=== PATIENT | female | born 1945 | race Caucasian/White ===

== ENCOUNTER 2016-05-31 15:40 | Emergency (ER) | payer OTHER ==
[~2016-05-31] VITALS: Ht 165.1 cm; Wt 88.0 kg
[2016-05-31 17:19] VITALS: BP 163/96
[2016-05-31] MEDS ORDERED: NAPR500T3 PO (18:16)
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
== END 2016-05-31 18:25 | disposition home or self-care (01) ==
LOC: ER 15:40
DX: S50.11XA Contusion of right forearm, initial encounter (principal); Z88.7 Allergy status to serum and vaccine; W22.8XXA Striking against or struck by other objects, initial encounter; Y93.89 Activity, other specified; Y92.89 Other specified places as the place of occurrence of the external cause; Y99.8 Other external cause status
CPT/HCPCS: 99282

== ENCOUNTER 2021-03-15 10:16 | Inpatient (IN) | payer MEDICARE, OTHER ==
[~2021-03-15] VITALS: Ht 162.6 cm; Wt 74.5 kg
[~2021-03-15 10:16] MED LIST: NAPR-514 PO
--- NOTE | 2021-03-15 10:58 | PHYS DOC ---
Past Medical History Past Medical History: No Pertinent History Past Surgical History: No Surgical History Smoking Status: Never Smoker Alcohol Use: None Drug Use: None General Adult EDM: Chief Complaint: SHORTNESS OF BREATH HPI: HPI: 76-year-old female past medical history of TIA and former tobacco use x30 years, presents to the ED with complaints of generalized weakness, shortness of breath, headache, sore throat and fatigue stating "I feel like crap." Has not been vaccinated for covid. No formal diagnosis of copd. Is tolerating food/drink. Review of Systems: Review of Systems: Constitutional: Denies fever or chills. [] Eyes: Denies change in visual acuity. [] HENT: Denies nasal congestion or rhinorrhea Respiratory: Denies cough or hemoptysis Cardiovascular: Denies chest pain or edema. [] GI: Denies abdominal pain, nausea, vomiting, bloody stools or diarrhea. [] : Denies dysuria or hematuria Musculoskeletal: Denies back pain or joint pain. [] Integument: Denies rash or diaphoresis Neurologic: Denies focal weakness or sensory changes. [] Endocrine: Denies polyuria or polydipsia. [] Lymphatic: Denies swollen glands. [] Psychiatric: Denies depression or anxiety. [] Heart Score: C/O Chest Pain: No Risk Factors: Risk Factors: DM, Current or recent (<one month) smoker, HTN, HLP, family history of CAD, obesity. Risk Scores: Score 0 - 3: 2.5% MACE over next 6 weeks - Discharge Home Score 4 - 6: 20.3% MACE over next 6 weeks - Admit for Clinical Observation Score 7 - 10: 72.7% MACE over next 6 weeks - Early Invasive Strategies Allergies: Allergies: Allergies Coded Allergies Type Severity Reaction Last Updated Verified Tetanus Vaccines and Toxoid Adverse Reaction Intermediate CAUSES COLD SYMPTOMS 03/15/21 Yes Physical Exam: PE: Constitutional: Well developed, well nourished, no acute distress, non-toxic appearance, afebrile HENT: Normocephalic, atraumatic, moist mucous membranes Eyes: EOMI, conjunctiva normal, no discharge. Neck: Normal range of motion, supple, Cardiovascular: S1/2 present, regular rhythm Lungs & Thorax: Speaking in full sentences, bilateral equal chest rise, no tachypnea or increased work of breathing, 83% RA, requires 5L NC Abdomen: soft, no tenderness, Skin: Warm, dry, no erythema, no rash. [] Extremities: No tenderness, no cyanosis, no lower extremity edema Neurologic: Alert and oriented X 3, normal motor function, normal sensory function, no focal deficits noted. [] Psychologic: Affect normal, judgement normal, mood normal. [] Current Patient Data: Vital Signs: Vital Signs Date Time Temp Pulse Resp B/P (MAP) Pulse Ox O2 Delivery O2 Flow Rate FiO2 03/15/21 10:34 94 Nasal Cannula 5.0 03/15/21 10:32 98.3 77 22 136/62 (86) 98.3 EKG: EKG: Sinus rhythm 80 bpm, no axis deviation, normal intervals, no obvious T wave inversion (motion artifact), no ST elevation or ST depression, no active chest pain Radiology/Procedures: Radiology/Procedures: IMAGING REPORT Signed PATIENT: BARBARA MURPHY EACCOUNT: [id number] : 1945 LOCATION: ER AGE: 76 SEX: F EXAM STATUS: REG ER ORD. PHYSICIAN: JARRED AYALA DO REASON: soa blood work 10:40 PROCEDURE: PORTABLE CHEST 1V EXAM: Chest, single view. HISTORY: Shortness of air. COMPARISON: None. FINDINGS: A frontal view of the chest is obtained. There is diffuse increased interstitial opacity likely due to interstitial infiltrate superimposed on chronic interstitial changes. There is no pleural effusion or pneumothorax. The heart is normal in size for portable technique. There are multiple healed rib fractures. IMPRESSION: Suspected diffuse interstitial infiltrate superimposed on chronic interstitial changes. Electronically signed by: Indu Flores MD (03/15/2021 11:03 AM) [id number] DICTATED and SIGNED BY: INDU FLORES MD DATE: 03/15/21 [id number] 0 Course & Med Decision Making: Course & Med Decision Making Pertinent Labs and Imaging studies reviewed. (See chart for details) COVID-19 CRITERIA: The patient was evaluated during the global COVID-19 pandemic, and that diagnosis was suspected/considered upon their initial presentation. Their evaluation, treatment and testing was consistent with current guidelines for patients who present with complaints or symptoms that may be related to COVID-19. Concern for COVID-19 infection, hypoxia, requiring nasal cannula. Will admit for further medical management. Patient stable time of admission and agrees with this plan. I have spoken with the patient and/or caregivers. I have explained the patient's condition, diagnosis and treatment plan based on the information available to me at this time. I have answered the patient's and/or caregivers questions and answered any concerns. The patient and/or caregivers have as good an understanding of the patient's diagnosis, condition and treatment plan as can be expected at this point. The patient has been stabilized within the capability of the emergency department. The patient will be transported for further care and management or will be moved to an observation or inpatient service. I have communicated with the staff or medical practitioner taking over this patient's care. Dheeraj Disclaimer: Dheeraj Disclaimer: This electronic medical record was generated, in whole or in part, using a voice recognition dictation system. Departure Departure Impression: Primary Impression: Hypoxic Additional Impression: COVID-19 Disposition: ADMITTED INPATIENT Admitting Physician: JUSTIN (Dr. Boyer) Condition: STABLE Referrals: NO PCP (PCP) JARRED AYALA DO Mar 15, 2021 10:58
[2021-03-15 11:00] LABS: BASO % 0 % (0-3); EOS % 0 % (0-3); HEMATOCRIT 37.5 % (36.0-47.0); HEMOGLOBIN 12.6 g/dL (12.0-15.5); LYMPH # 0.5 x10^3/uL (1.0-4.8); LYMPH % 8 % (24-48); MEAN CORPUSCULAR HEMOGLOBIN 30 pg (25-35); MEAN CORPUSCULAR HGB CONC 34 g/dL (31-37); MEAN CORPUSCULAR VOLUME 89 fL (79-100); MONO # 0.3 x10^3/uL (0.0-1.1); MONO % 5 % (0-9); NEUT # 5.6 x10^3/uL (1.8-7.7); NEUT % 86 % (31-73); PLATELET COUNT 341 x10^3/uL (140-400); RED BLOOD COUNT 4.23 x10^6/uL (3.50-5.40); RED CELL DISTRIBUTION WIDTH 13.8 % (11.5-14.5); WHITE BLOOD COUNT 6.5 x10^3/uL (4.0-11.0)
[2021-03-15] MEDS ORDERED: diphenhydrAMINE 50 MG/ML VIAL IVP ONE (11:00)
[2021-03-15] MEDS ORDERED: IV NORMAL SALINE 1000ML BAG 1,000 ML IV ONE (11:00)
[2021-03-15] MEDS ORDERED: PROCHLORPERAZINE 10 MG/2 ML VIAL. IV ONE (11:00)
[2021-03-15] MEDS ORDERED: DEXAMETHASONE SOD PHOS 20 MG/5 ML VIAL. IV ONE (11:00)
--- NOTE | 2021-03-15 11:05 | RAD ---
EXAM: Chest, single view. HISTORY: Shortness of air. COMPARISON: None. FINDINGS: A frontal view of the chest is obtained. There is diffuse increased interstitial opacity li radha due to interstitial infiltrate superimposed on chronic interstitial changes. There is no pleural effusion or pneumothorax. The heart is normal in size for portable technique. There are multiple hea led rib fractures. IMPRESSION: Suspected diffuse interstitial infiltrate superimposed on chronic interstitial changes. Electronically signed by: Indu Becker MD (03/15/2021 11:03 AM) [id number]
[2021-03-15 11:06] LABS: CALCIUM 8.5 mg/dL (8.5-10.1); CREATININE 0.8 mg/dL (0.6-1.0); GFR 69.9; POTASSIUM 3.3 mmol/L (3.5-5.1)
[2021-03-15 11:14] LABS: ALBUMIN 2.5 g/dL (3.4-5.0); ALBUMIN/GLOBULIN RATIO 0.6 (1.0-1.7); TOTAL BILIRUBIN 0.5 mg/dL (0.2-1.0); TOTAL PROTEIN 6.9 g/dL (6.4-8.2)
[2021-03-15 11:45] LABS: PCO2 ABG 33 mmHg (35-46)
[2021-03-15 11:46] LABS: BASE EXCESS ABG 3 mmol/L (-3-3); FIO2 ABG 21; HCO3 ABG 25 mmol/L (21-28); PO2 ABG 46 mmHg (65-108); SAT O2 ABG 86 % (92-99)
[2021-03-15 12:07] LABS: INFLUENZA A PATIENT NEGATIVE (NEGATIVE); INFLUENZA B PATIENT NEGATIVE (NEGATIVE)
--- NOTE | 2021-03-15 12:13 | PDOC1 ---
History and Physical Date of Admission Date of Admission DATE: 03/15/21 TIME: 12:12 Identification/Chief Complaint Chief Complaint SOB, sore throat Source Source: Patient History of Present Illness History of Present Illness Ms Medina is a 76yo female with PMHx TIA, seasonal allergies who presents to ED via private vehicle on 03/15/2021 c/o worsening SOB, sore throat, and fatigue for the past 3 days prior to admission. Over the past 48 hours prior to arrival she has been laying in bed and has not cooked for herself or eaten anything. She started developed diarrhea over the last day prior to arrival and almost had fecal accident in her bed. She told her grandson who lives with her that she was getting worse and needed to go to the hospital. She does note that over the past 4 days the food that she had cooked and tried to eat had tasted more salty and was losing its flavor. Denies fever, reports chills. 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 She helps transport her great granddaughter to school on a regular basis and on Tuesday03/06/2021 had to bring her great- granddaughter home early due to febrile illness took her great granddaughter to [facility] to be tested for COVID-19 and that test returned positive, and no one else in the family was tested. Patient thought she did not spend much time with her great-granddaughter, but did not wear a mask with her. Patient thinks this was her initial exposure. Patient is not vaccinated against COVID 19. Vital signs in ED pulse 77 beats a minute respirations 22/min O2 saturations 83% on room air blood pressure 136/62. Temp 98.3 F Chest radiograph with interstitial infiltrates likely acute on chronic. EKG appears sinus rhythm rate of 80 bpm normal axes and intervals, QTC [address] segment elevations no T wave inversions. Labs WBC 6.5 Hb 12.6, platelets 341, NA 138, K3.3, BUN 15, CR 0.8, glucose 96, calcium 8.5, bilirubin 0.5, AST 39, ALT 25, alk phos 53, CK 79, albumin 2.5, high-sensitivity troponin XI, rapid influenza negative, rapid COVID-19 positive, rapid group A strep negative ABG on room air 7.5 She was placed on 5 L/min nasal cannula of oxygen and O2 saturations are 92%. Admitted for further care. Past Medical History CENTRAL NERVOUS SYSTEM: TIA (2015) Past Surgical History Past Surgical History: No pertinent history Family History Family History: Coronary Artery Disease, Diabetes, High Cholestrol, Hypertension Social History Smoke: Quit (2002) ALCOHOL: none Drugs: None Current Problem List Problem List Problems Medical Problems: (1) COVID-19 Status: Acute (2) Hypoxic Status: Acute (3) Person under investigation for COVID-19 Status: Acute Current Medications Current Medications Current Medications Dexamethasone Sodium Phosphate (Decadron) 10 mg 1X ONCE IV Last administered on 03/15/21at 11:29; Start 03/15/21 at 11:00; Stop 03/15/21 at 11:01; Status DC Prochlorperazine Edisylate (Compazine) 10 mg 1X ONCE IV Last administered on 03/15/21at 11:29; Start 03/15/21 at 11:00; Stop 03/15/21 at 11:01; Status DC Diphenhydramine HCl (Benadryl) 25 mg 1X ONCE IVP Last administered on 03/15/21at 11:28; Start 03/15/21 at 11:00; Stop 03/15/21 at 11:01; Status DC Sodium Chloride 1,000 ml @ 1,000 mls/hr 1X ONCE IV Last administered on 03/15/21at 11:00; Start 03/15/21 at 11:00; Stop 03/15/21 at 11:59; Status DC Active Scripts Active Naproxen 500 Mg Tablet 1 Tab PO BID PRN Allergies Allergies: Coded Allergies: Tetanus Vaccines and Toxoid (Verified Adverse Reaction, Intermediate, CAUSES COLD SYMPTOMS, 03/15/21) ROS General: YES: Chills, Fatigue, Malaise, Appetite; No: Night Sweats, Other PSYCHOLOGICAL ROS: No: Anxiety, Behavioral Disorder, Concentration difficultie, Decreased libido, Depression, Disorientation, Hallucinations, Hostility, Irritablity, Memory difficulties, Mood Swings, Obsessive thoughts, Physical abuse, Sexual abuse, Sleep disturbances, Suicidal ideation, Other Eyes: Yes Uses glasses; No Blurry vision, No Decreased vision, No Double vision, No Dry eyes, No Excessive tearing, No Eye Pain, No Itchy Eyes, No Loss of vision, No Photophobia, No Scotomata, No Uses contacts, No Other HEENT: YES: Nasal congestion, Nasal discharge, Sore Throat; No: Heacaches, Visual Changes, Hearing change, Oral lesions, Sinus pain, Epistaxis, Sneezing, Snoring, Tinnitus, Vertigo, Vocal changes, Other ALLERGY AND IMMUNOLOGY: No: Hives, Insect Bite Sensitivity, Itchy/Watery Eyes, Nasal Congestion, Post Nasal Drip, Seasonal Allergies, Other Hematological and Lymphatic: No: Bleeding Problems, Blood Clots, Blood Transfusions, Brusing, Night Sweats, Pallor, Swollen Lymph Nodes, Other ENDOCRINE: No: Breast Changes, Galactorrhea, Hair Pattern Changes, Hot Flashes, Malaise/lethargy, Mood Swings, Palpitations, Polydipsia/polyuria, Skin Changes, Temperature Intolerance, Unexpected Weight Changes, Other Breast: No New/Changing Breast Lumps, No Nipple changes, No Nipple discharge, No Other Respiratory: YES: Cough, Shortness of breath, SOB with excertion; No: Hemoptysis, Orthopnea, Pleuritic Pain, Sputum Changes, Stridor, Tachypnea, Wheezing, Other Cardiovascular: No Chest Pain, No Palpitations, No Orthopnea, No Paroxysmal Noc. Dyspnea, No Edema, No Lt Headedness, No Other Gastrointestinal: Yes Nausea, Yes Diarrhea; No Vomiting, No Abdominal Pain, No Constipation, No Melena, No Hematochezia, No Other Genitourinary: No Dysuria, No Frequency, No Incontinence, No Hematuria, No Retention, No Discharge, No Urgency, No Pain, No Flank Pain, No Other, No , No , No , No , No , No , No Musculoskeletal: No Gait Disturbance, No Joint Pain, No Joint Stiffness, No Joint Swelling, No Muscle Pain, No Muscular Weakness, No Pain In:, No Swelling In:, No Other Neurological: No Behavorial Changes, No Bowel/Bladder ControlChng, No Confusion, No Dizziness, No Gait Disturbance, No Headaches, No Impaired Coord/balance, No Memory Loss, No Numbness/Tingling, No Seizures, No Speech Problems, No Tremors, No Visual Changes, No Weakness, No Other Skin: No Dry Skin, No Eczema, No Hair Changes, No Lumps, No Mole Changes, No Mottling, No Nail Changes, No Pruritus, No Rash, No Skin Lesion Changes, No Other, No Acne Physical Exam General: Alert, Oriented X3, Cooperative, moderate distress HEENT: Atraumatic, PERRLA, EOMI, Mucous membr. moist/pink Lungs: Other (scattered wheezes) Heart: S1S2, RRR, no thrills, no rubs, no gallops, no murmurs Abdomen: Normal bowel sounds, Soft, No tenderness, No hepatosplenomegaly, No masses Rectal Exam: not examined Extremities: No clubbing, No cyanosis, No edema, Normal pulses, No tenderness/swelling Skin: No rashes, No breakdown, No significant lesion Neuro: Normal gait, Normal speech, Strength at 5/5 X4 ext, Normal tone, Sensation intact, Cranial nerves 3-12 NL, Reflexes 2+ Psych/Mental Status: Mental status NL, Mood NL Vitals Vitals Vital Signs Date Time Temp Pulse Resp B/P (MAP) Pulse Ox O2 Delivery O2 Flow Rate FiO2 03/15/21 11:34 78 20 144/81 (102) 97 Nasal Cannula 5.0 03/15/21 10:32 98.3 98.3 Labs Labs Laboratory Tests Test 03/15/21 10:42 03/15/21 10:50 03/15/21 11:35 White Blood Count 6.5 x10^3/uL (4.0-11.0) Red Blood Count 4.23 x10^6/uL (3.50-5.40) Hemoglobin 12.6 g/dL (12.0-15.5) Hematocrit 37.5 % (36.0-47.0) Mean Corpuscular Volume 89 fL (79-100) Mean Corpuscular Hemoglobin 30 pg (25-35) Mean Corpuscular Hemoglobin Concent 34 g/dL (31-37) Red Cell Distribution Width 13.8 % (11.5-14.5) Platelet Count 341 x10^3/uL (140-400) Neutrophils (%) (Auto) 86 % (31-73) Lymphocytes (%) (Auto) 8 % (24-48) Monocytes (%) (Auto) 5 % (0-9) Eosinophils (%) (Auto) 0 % (0-3) Basophils (%) (Auto) 0 % (0-3) Neutrophils # (Auto) 5.6 x10^3/uL (1.8-7.7) Lymphocytes # (Auto) 0.5 x10^3/uL (1.0-4.8) Monocytes # (Auto) 0.3 x10^3/uL (0.0-1.1) Eosinophils # (Auto) 0.0 x10^3/uL (0.0-0.7) Basophils # (Auto) 0.0 x10^3/uL (0.0-0.2) Sodium Level 138 mmol/L (136-145) Potassium Level 3.3 mmol/L (3.5-5.1) Chloride Level 102 mmol/L (98-107) Carbon Dioxide Level 24 mmol/L (21-32) Anion Gap 12 (6-14) Blood Urea Nitrogen 15 mg/dL (7-20) Creatinine 0.8 mg/dL (0.6-1.0) Estimated GFR (Cockcroft-Gault) 69.9 BUN/Creatinine Ratio 19 (6-20) Glucose Level 96 mg/dL (70-99) Calcium Level 8.5 mg/dL (8.5-10.1) Total Bilirubin 0.5 mg/dL (0.2-1.0) Aspartate Amino Transf (AST/SGOT) 39 U/L (15-37) Alanine Aminotransferase (ALT/SGPT) 25 U/L (14-59) Alkaline Phosphatase 53 U/L (46-116) Creatine Kinase 79 U/L (26-192) Troponin I High Sensitivity 11 ng/L (4-50) Total Protein 6.9 g/dL (6.4-8.2) Albumin 2.5 g/dL (3.4-5.0) Albumin/Globulin Ratio 0.6 (1.0-1.7) Influenza Type A Antigen Negative (NEGATIVE) Influenza Type B Antigen Negative (NEGATIVE) SARS-CoV-2 Antigen (Rapid) Positive (NEGATIVE) O2 Saturation 86 % (92-99) Arterial Blood pH 7.50 (7.35-7.45) Arterial Blood pCO2 at Patient Temp 33 mmHg (35-46) Arterial Blood pO2 at Patient Temp 46 mmHg (65-108) Arterial Blood HCO3 25 mmol/L (21-28) Arterial Blood Base Excess 3 mmol/L (-3-3) FiO2 21 Laboratory Tests Test 03/15/21:42 03/15/21 10:50 03/15/21 11:35 White Blood Count 6.5 x10^3/uL (4.0-11.0) Red Blood Count 4.23 x10^6/uL (3.50-5.40) Hemoglobin 12.6 g/dL (12.0-15.5) Hematocrit 37.5 % (36.0-47.0) Mean Corpuscular Volume 89 fL (79-100) Mean Corpuscular Hemoglobin 30 pg (25-35) Mean Corpuscular Hemoglobin Concent 34 g/dL (31-37) Red Cell Distribution Width 13.8 % (11.5-14.5) Platelet Count 341 x10^3/uL (140-400) Neutrophils (%) (Auto) 86 % (31-73) Lymphocytes (%) (Auto) 8 % (24-48) Monocytes (%) (Auto) 5 % (0-9) Eosinophils (%) (Auto) 0 % (0-3) Basophils (%) (Auto) 0 % (0-3) Neutrophils # (Auto) 5.6 x10^3/uL (1.8-7.7) Lymphocytes # (Auto) 0.5 x10^3/uL (1.0-4.8) Monocytes # (Auto) 0.3 x10^3/uL (0.0-1.1) Eosinophils # (Auto) 0.0 x10^3/uL (0.0-0.7) Basophils # (Auto) 0.0 x10^3/uL (0.0-0.2) Sodium Level 138 mmol/L (136-145) Potassium Level 3.3 mmol/L (3.5-5.1) Chloride Level 102 mmol/L (98-107) Carbon Dioxide Level 24 mmol/L (21-32) Anion Gap 12 (6-14) Blood Urea Nitrogen 15 mg/dL (7-20) Creatinine 0.8 mg/dL (0.6-1.0) Estimated GFR (Cockcroft-Gault) 69.9 BUN/Creatinine Ratio 19 (6-20) Glucose Level 96 mg/dL (70-99) Calcium Level 8.5 mg/dL (8.5-10.1) Total Bilirubin 0.5 mg/dL (0.2-1.0) Aspartate Amino Transf (AST/SGOT) 39 U/L (15-37) Alanine Aminotransferase (ALT/SGPT) 25 U/L (14-59) Alkaline Phosphatase 53 U/L (46-116) Creatine Kinase 79 U/L (26-192) Troponin I High Sensitivity 11 ng/L (4-50) Total Protein 6.9 g/dL (6.4-8.2) Albumin 2.5 g/dL (3.4-5.0) Albumin/Globulin Ratio 0.6 (1.0-1.7) Influenza Type A Antigen Negative (NEGATIVE) Influenza Type B Antigen Negative (NEGATIVE) SARS-CoV-2 Antigen (Rapid) Positive (NEGATIVE) O2 Saturation 86 % (92-99) Arterial Blood pH 7.50 (7.35-7.45) Arterial Blood pCO2 at Patient Temp 33 mmHg (35-46) Arterial Blood pO2 at Patient Temp 46 mmHg (65-108) Arterial Blood HCO3 25 mmol/L (21-28) Arterial Blood Base Excess 3 mmol/L (-3-3) FiO2 21 Images Images Chest radiograph: A frontal view of the chest is obtained. There is diffuse increased interstitial opacity likely due to interstitial infiltrate superimposed on chronic interstitial changes. There is no pleural effusion or pneumothorax. The heart is normal in size for portable technique. There are multiple healed rib fractures. IMPRESSION: Suspected diffuse interstitial infiltrate superimposed on chronic interstitial changes. VTE Prophylaxis Ordered VTE Prophylaxis Devices: No VTE Pharmacological Prophylaxi: Yes Assessment/Plan Assessment/Plan A/P: Acute respiratory failure with hypoxia -due to COVID-19 with pneumonia. Will wean O2 as tolerated. Decadron daily for 10 days. Remdesivir. Supportive care wean O2 as tolerated COVID 19 - not vaccinated, Decadron, remdesivir, supportive care, O2 therapy. Check CRP, may benefit from Tocilizumab if elevated Severe protein calorie malnutrition - will give 1 dose clinimix, monitor PO intake, regular diet Mild transaminitis - likely due to covid 19. Will monitor, prn loperamide Seasonal allergies - zyrtec, prn albuterol inhaler H/o TIA - prior carotid dopplers with no significant disease. Abnormal CXR - possibly with underlying pulmonary disease, likely this is COVID 19 pneumonia. Monitor FEN - General diet PPX - lovenox CODE - DNR/DNI Dispo - inpatient patient names Promise Brown and Jacinto Brown as her surrogate decision makers Justifications for Admission Other Justification LUIS ANTONIO BROOKS MD Mar 15, 2021 12:13
[2021-03-15] MEDS ORDERED: guaiFENesin DM 200MG/20MG 10 ML SYRUP PO PRN (12:15)
[2021-03-15] MEDS ORDERED: fentaNYL PF VIAL 100 MCG/2 ML VIAL IVP PRN (12:15)
[2021-03-15] MEDS ORDERED: ONDANSETRON PF 4 MG/2 ML VIAL. IVP PRN (12:15)
[2021-03-15] MEDS ORDERED: ACETAMINOPHEN 325 MG TABLET. PO PRN (12:15)
[2021-03-15] MEDS ORDERED: traMADol 50 MG TABLET PO PRN (12:15)
[2021-03-15 14:00] VITALS: BP 140/58
[2021-03-15] MEDS ORDERED: POTASSIUM BICARB 20 MEQ EFFERVESCENT TABLET. PO ONE (14:30)
[2021-03-15] MEDS ORDERED: ALBUTEROL SULFATE 8GM INHALER. INH PRN (14:30)
[2021-03-15] MEDS ORDERED: AA 4.25 %/CALCIUM/LYTES/D5W 1,000 ML IV SCH (15:00)
--- NOTE | 2021-03-15 15:00 | EKG ---
[facility] [address] [place] [address] Test Date: 2021-03-15 Test Time: 10:28:59 Pat Name: BARBARA MURPHY Department: Room: [facility] Gender: F [employer] Equipment Repairer: : 1945 Requested By: JARRED AYALA Order Number: [id number] Reading MD: Aldair Kelly Measurements Intervals [place] Rate: 80 P: 38 OK: 160 QRS: 3 QRSD: 76 T: 18 QT: 382 QTc: 444 Interpretive Statements SINUS RHYTHM NORMAL ECG RI6.02 No previous ECG available for comparison Electronically Signed On 03-15-2021 20:54:15 CDT by Aldair Kelly
[2021-03-15] MEDS ORDERED: SODIUM CHLORIDE 0.65% NASAL SPRAY 45ML BOTTLE. NS PRN (15:15)
[2021-03-15] MEDS ORDERED: LOPERAMIDE 2 MG CAPSULE PO PRN (15:15)
[2021-03-15] MEDS: CETIRIZINE HCL 10 MG TABLET. PO SCH ×2 (16:43→17:07)
[2021-03-15] MEDS: REMDESIVIR LOAD in IV NORMAL SALINE 250ML TV IV ONE ×2 (16:44→17:07)
--- NOTE | 2021-03-15 17:57 | NUR ---
Patient refused her loading dose of Remdesivir, due to her friend on the phone stating she shouldn't take it because it affects the kidneys. Patient would like to talk to the doctor about medication before raking it.
[2021-03-15 19:00] VITALS: BP 106/87
[2021-03-15] MEDS: PSYLLIUM HUSK (SUGAR FREE) 1 PKT PACKET PO SCH (22:29)
[2021-03-15] MEDS: ENOXAPARIN 40 MG/0.4 ML SYRINGE. SQ SCH (22:30)
[2021-03-15 23:41] VITALS: BP 135/86
[2021-03-16 03:16] VITALS: BP 157/60
[2021-03-16 06:35] LABS: BASO % 0 % (0-3); EOS % 0 % (0-3); HEMATOCRIT 38.7 % (36.0-47.0); HEMOGLOBIN 12.7 g/dL (12.0-15.5); LYMPH # 0.5 x10^3/uL (1.0-4.8); LYMPH % 9 % (24-48); MEAN CORPUSCULAR HEMOGLOBIN 29 pg (25-35); MEAN CORPUSCULAR HGB CONC 33 g/dL (31-37); MEAN CORPUSCULAR VOLUME 89 fL (79-100); MONO # 0.3 x10^3/uL (0.0-1.1); MONO % 6 % (0-9); NEUT # 4.5 x10^3/uL (1.8-7.7); NEUT % 85 % (31-73); PLATELET COUNT 365 x10^3/uL (140-400); RED BLOOD COUNT 4.35 x10^6/uL (3.50-5.40); RED CELL DISTRIBUTION WIDTH 14.2 % (11.5-14.5); WHITE BLOOD COUNT 5.3 x10^3/uL (4.0-11.0)
[2021-03-16 07:00] VITALS: BP 178/71
[2021-03-16 07:12] LABS: ALBUMIN 2.3 g/dL (3.4-5.0); ALBUMIN/GLOBULIN RATIO 0.5 (1.0-1.7); C-REACTIVE PROTEIN 103.3 mg/L (0-3.3); CALCIUM 8.5 mg/dL (8.5-10.1); CREATININE 0.8 mg/dL (0.6-1.0); GFR 69.9; POTASSIUM 4.2 mmol/L (3.5-5.1); TOTAL BILIRUBIN 0.3 mg/dL (0.2-1.0); TOTAL PROTEIN 6.7 g/dL (6.4-8.2)
[2021-03-16] MEDS: ZINC SULFATE 220 MG CAPSULE. PO SCH (09:32)
[2021-03-16] MEDS: THIAMINE 100 MG TABLET. PO SCH (09:32)
[2021-03-16] MEDS: ASCORBIC ACID 500 MG TABLET PO SCH (09:32)
[2021-03-16] MEDS: CETIRIZINE HCL 10 MG TABLET. PO SCH (09:32)
[2021-03-16] MEDS: DEXAMETHASONE SOD PHOS 4 MG/ML VIAL IVP SCH (09:33)
--- NOTE | 2021-03-16 10:51 | PDOC ---
[employer] PROGRESS NOTE Date of Service DOS: DATE: 03/16/21 TIME: 10:47 Chief Complaint Chief Complaint SOB sore throat COVID-19 Hypoxic History of Present Illness History of Present Illness 03/16 Patient seen and examined bedside. Patient pleasant and conversational. Discussed case with RN and social work coordinator. Ms Medina is a 76yo female with PMHx TIA, seasonal allergies who presents to ED via private vehicle on 03/15/2021 c/o worsening SOB, sore throat, and fatigue for the past 3 days prior to admission. Over the past 48 hours prior to arrival she has been laying in bed and has not cooked for herself or eaten anything. She started developed diarrhea over the last day prior to arrival and almost had fecal accident in her bed. She told her grandson who lives with her that she was getting worse and needed to go to the hospital. She does note that over the past 4 days the food that she had cooked and tried to eat had tasted more salty and was losing its flavor. Denies fever, reports chills. 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 She helps transport her great granddaughter to school on a regular basis and on Tuesday03/06/2021 had to bring her great- granddaughter home early due to febrile illness took her great granddaughter to [facility] to be tested for COVID-19 and that test returned positive, and no one else in the family was tested. Patient thought she did not spend much time with her great-granddaughter, but did not wear a mask with her. Patient thinks this was her initial exposure. Patient is not vaccinated against COVID 19. Vital signs in ED pulse 77 beats a minute respirations 22/min O2 saturations 83% on room air blood pressure 136/62. Temp 98.3 F Chest radiograph with interstitial infiltrates likely acute on chronic. EKG appears sinus rhythm rate of 80 bpm normal axes and intervals, QTC [address] segment elevations no T wave inversions. Labs WBC 6.5 Hb 12.6, platelets 341, NA 138, K3.3, BUN 15, CR 0.8, glucose 96, calcium 8.5, bilirubin 0.5, AST 39, ALT 25, alk phos 53, CK 79, albumin 2.5, high-sensitivity troponin XI, rapid influenza negative, rapid COVID-19 positive, rapid group A strep negative ABG on room air 7. She was placed on 5 L/min nasal cannula of oxygen and O2 saturations are 92%. Admitted for further care. Vitals/I&O Vitals/I&O: Vital Signs Date Time Temp Pulse Resp B/P (MAP) Pulse Ox O2 Delivery O2 Flow Rate FiO2 03/16/21 07:00 97.1 71 18 178/71 (106) 90 Nasal Cannula 7.0 97.1 I & O 03/15/21 03/15/21 03/16/21 15:00 23:00 07:00 Intake Total 100 ml Balance 100 ml Physical Exam General: Alert, Oriented X3, Cooperative, moderate distress Heart: Regular rate, No murmurs Lungs: Other (mild bibasilar rales) Abdomen: Normal bowel sounds, Soft, No tenderness, No hepatosplenomegaly, No masses Extremities: No clubbing, No cyanosis, No edema, Normal pulses, No tenderness/swelling Skin: No rashes, No breakdown, No significant lesion Labs Labs: Laboratory Tests Test 03/15/21 10:50 03/15/21 11:35 03/15/21 11:50 03/16/21 05:45 Influenza Type A Antigen Negative (NEGATIVE) Influenza Type B Antigen Negative (NEGATIVE) SARS-CoV-2 Antigen (Rapid) Positive (NEGATIVE) O2 Saturation 86 % (92-99) Arterial Blood pH 7.50 (7.35-7.45) Arterial Blood pCO2 at Patient Temp 33 mmHg (35-46) Arterial Blood pO2 at Patient Temp 46 mmHg (65-108) Arterial Blood HCO3 25 mmol/L (21-28) Arterial Blood Base Excess 3 mmol/L (-3-3) FiO2 21 Group A Streptococcus Rapid Negative (NEGATIVE) White Blood Count 5.3 x10^3/uL (4.0-11.0) Red Blood Count 4.35 x10^6/uL (3.50-5.40) Hemoglobin 12.7 g/dL (12.0-15.5) Hematocrit 38.7 % (36.0-47.0) Mean Corpuscular Volume 89 fL (79-100) Mean Corpuscular Hemoglobin 29 pg (25-35) Mean Corpuscular Hemoglobin Concent 33 g/dL (31-37) Red Cell Distribution Width 14.2 % (11.5-14.5) Platelet Count 365 x10^3/uL (140-400) Neutrophils (%) (Auto) 85 % (31-73) Lymphocytes (%) (Auto) 9 % (24-48) Monocytes (%) (Auto) 6 % (0-9) Eosinophils (%) (Auto) 0 % (0-3) Basophils (%) (Auto) 0 % (0-3) Neutrophils # (Auto) 4.5 x10^3/uL (1.8-7.7) Lymphocytes # (Auto) 0.5 x10^3/uL (1.0-4.8) Monocytes # (Auto) 0.3 x10^3/uL (0.0-1.1) Eosinophils # (Auto) 0.0 x10^3/uL (0.0-0.7) Basophils # (Auto) 0.0 x10^3/uL (0.0-0.2) Sodium Level 138 mmol/L (136-145) Potassium Level 4.2 mmol/L (3.5-5.1) Chloride Level 104 mmol/L (98-107) Carbon Dioxide Level 24 mmol/L (21-32) Anion Gap 10 (6-14) Blood Urea Nitrogen 21 mg/dL (7-20) Creatinine 0.8 mg/dL (0.6-1.0) Estimated GFR (Cockcroft-Gault) 69.9 BUN/Creatinine Ratio 26 (6-20) Glucose Level 270 mg/dL (70-99) Calcium Level 8.5 mg/dL (8.5-10.1) Total Bilirubin 0.3 mg/dL (0.2-1.0) Aspartate Amino Transf (AST/SGOT) 45 U/L (15-37) Alanine Aminotransferase (ALT/SGPT) 32 U/L (14-59) Alkaline Phosphatase 59 U/L (46-116) C-Reactive Protein, Quantitative 103.3 mg/L (0-3.3) Total Protein 6.7 g/dL (6.4-8.2) Albumin 2.3 g/dL (3.4-5.0) Albumin/Globulin Ratio 0.5 (1.0-1.7) Review of Systems Review of Systems: ROS was negative except as noted in HPI. Assessment and Plan Assessmemt and Plan Assessment: SOB sore throat COVID-19 Hypoxic Plan: COVID-19 protocol Remdesivir (pt initially refused but now accepting) Rocephin Doxycycline Dexamethasone Beta agonist O2 Robutussin DVT ppx Encourage PO intake Appreciate sub-specialist input DNR Comment Review of Relevant I have reviewed the following items gold (where applicable) has been applied. Medications: Current Medications Medications (Trade) Dose Ordered Sig/Demar Route PRN Reason Start Time Stop Time Status Last Admin Dose Admin Dexamethasone Sodium Phosphate (Decadron) 10 mg 1X ONCE IV 03/15/21 11:00 03/15/21 11:01 DC 03/15/21 11:29 Prochlorperazine Edisylate (Compazine) 10 mg 1X ONCE IV 03/15/21 11:00 03/15/21 11:01 DC 03/15/21 11:29 Diphenhydramine HCl (Benadryl) 25 mg 1X ONCE IVP 03/15/21 11:00 03/15/21 11:01 DC 03/15/21 11:28 Sodium Chloride 1,000 ml @ 1,000 mls/hr 1X ONCE IV 03/15/21 11:00 03/15/21 11:59 DC 03/15/21 11:00 Psyllium Hydrophilic Mucilloid (Metamucil Fiber Packet) 1 pkt QHS PO 03/15/21 21:00 03/15/21 22:29 Enoxaparin Sodium (Lovenox 40mg Syringe) 40 mg Q24H SQ 03/15/21 21:00 03/15/21 22:30 Dexamethasone Sodium Phosphate (Decadron) 6 mg DAILY IVP 03/16/21 09:00 03/24/21 09:01 03/16/21 09:33 Thiamine Mononitrate (Vitamin B-1) 100 mg DAILY PO 03/16/21 09:00 03/16/21 09:32 Ascorbic Acid (Vitamin C) 500 mg DAILY PO 03/16/21 09:00 03/16/21 09:32 Zinc Sulfate (Orazinc) 220 mg DAILY PO 03/16/21 09:00 03/16/21 09:32 Potassium Bicarbonate (Potassium Effervescent Tablet) 40 meq 1X ONCE PO 03/15/21 14:30 03/15/21 14:31 DC 03/15/21 16:43 Amino Acids/ Electrolytes/ Dextrose 1,000 ml @ 80 mls/hr [id number] IV 03/15/21 15:00 03/16/21 03:29 DC 03/15/21 16:43 Cetirizine HCl (ZyrTEC) 10 mg DAILY PO 03/15/21 16:00 03/16/21 09:32 Justifications for Admission Other Justification EWELINA MONTERO III DO Mar 16, 2021 10:50
[2021-03-16 11:00] VITALS: BP 171/77
[2021-03-16] MEDS: hydrALAZINE 20 MG/ML VIAL. IVP PRN (11:43)
[2021-03-16] MEDS: cefTRIAXone IV Push 1 GM VIAL. IVP SCH (13:34)
[2021-03-16] MEDS: DOXYCYCLINE HYCLATE 100 MG in IV DEXTROSE 5% 100ML 100 ML IV SCH ×2 (13:34→20:59)
[2021-03-16 15:00] VITALS: BP 131/62
[2021-03-16] MEDS ORDERED: REMDESIVIR LOAD in IV NORMAL SALINE 250ML TV IV ONE (15:00)
[2021-03-16] MEDS ORDERED: REMDESIVIR 100mg in NORMAL SALINE 250ML X 4 DAYS IV SCH (16:00)
[2021-03-16 19:00] VITALS: BP 158/74
[2021-03-16] MEDS: PSYLLIUM HUSK (SUGAR FREE) 1 PKT PACKET PO SCH (20:59)
[2021-03-16] MEDS: ENOXAPARIN 40 MG/0.4 ML SYRINGE. SQ SCH (21:00)
[2021-03-16 23:13] VITALS: BP 148/65
[2021-03-17 03:02] VITALS: BP 173/91
[2021-03-17 07:00] VITALS: BP 157/75
[2021-03-17 07:26] LABS: ALBUMIN 2.2 g/dL (3.4-5.0); ALBUMIN/GLOBULIN RATIO 0.5 (1.0-1.7); CALCIUM 8.6 mg/dL (8.5-10.1); CREATININE 0.8 mg/dL (0.6-1.0); GFR 69.9; POTASSIUM 4.2 mmol/L (3.5-5.1); TOTAL BILIRUBIN 0.3 mg/dL (0.2-1.0); TOTAL PROTEIN 6.4 g/dL (6.4-8.2)
[2021-03-17 07:38] LABS: BASO % 0 % (0-3); EOS % 0 % (0-3); HEMATOCRIT 36.4 % (36.0-47.0); HEMOGLOBIN 12.3 g/dL (12.0-15.5); LYMPH # 0.6 x10^3/uL (1.0-4.8); LYMPH % 6 % (24-48); MEAN CORPUSCULAR HEMOGLOBIN 30 pg (25-35); MEAN CORPUSCULAR HGB CONC 34 g/dL (31-37); MEAN CORPUSCULAR VOLUME 90 fL (79-100); MONO # 0.7 x10^3/uL (0.0-1.1); MONO % 7 % (0-9); NEUT # 8.8 x10^3/uL (1.8-7.7); NEUT % 87 % (31-73); PLATELET COUNT 440 x10^3/uL (140-400); RED BLOOD COUNT 4.06 x10^6/uL (3.50-5.40); RED CELL DISTRIBUTION WIDTH 13.9 % (11.5-14.5); WHITE BLOOD COUNT 10.1 x10^3/uL (4.0-11.0)
[2021-03-17] MEDS: ZINC SULFATE 220 MG CAPSULE. PO SCH (09:06)
[2021-03-17] MEDS: CETIRIZINE HCL 10 MG TABLET. PO SCH (09:06)
[2021-03-17] MEDS: ASCORBIC ACID 500 MG TABLET PO SCH (09:06)
[2021-03-17] MEDS: THIAMINE 100 MG TABLET. PO SCH (09:06)
[2021-03-17] MEDS: LACTOBACILLUS RHAMNOSUS GG 1 CAPSULE. PO SCH ×2 (09:06→20:23)
[2021-03-17] MEDS: DOXYCYCLINE HYCLATE 100 MG in IV DEXTROSE 5% 100ML 100 ML IV SCH ×2 (09:06→20:22)
[2021-03-17] MEDS: DEXAMETHASONE SOD PHOS 4 MG/ML VIAL IVP SCH (09:07)
--- NOTE | 2021-03-17 10:46 | NUR ---
SW following. Discussed with RN, pt from home with grandson, 6.5L, regular diet, COVID-19 positive. Today is Day 2 of Remdesivir. RN advised no SW needs at this time. SW will continue to follow.
[2021-03-17 11:00] VITALS: BP 154/75
--- NOTE | 2021-03-17 11:09 | PDOC ---
[employer] PROGRESS NOTE Date of Service DOS: DATE: 03/17/21 TIME: 11:06 Chief Complaint Chief Complaint SOB sore throat COVID-19 Hypoxic History of Present Illness History of Present Illness 03/17 Patient seen and examined bedside. Patient reports feeling much better than yesterday. Chart reviewed. Discussed case with RN and home health care social worker. 03/16 Patient seen and examined bedside. Patient pleasant and conversational. Discussed case with RN and home health care social worker. Ms Medina is a 76yo female with PMHx TIA, seasonal allergies who presents to ED via private vehicle on 03/15/2021 c/o worsening SOB, sore throat, and fatigue for the past 3 days prior to admission. Over the past 48 hours prior to arrival she has been laying in bed and has not cooked for herself or eaten anything. She started developed diarrhea over the last day prior to arrival and almost had fecal accident in her bed. She told her grandson who lives with her that she was getting worse and needed to go to the hospital. She does note that over the past 4 days the food that she had cooked and tried to eat had tasted more salty and was losing its flavor. Denies fever, reports chills. 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 She helps transport her great granddaughter to school on a regular basis and on Tuesday03/06/2021 had to bring her great- granddaughter home early due to febrile illness took her great granddaughter to [facility] to be tested for COVID-19 and that test returned positive, and no one else in the family was tested. Patient thought she did not spend much time with her great-granddaughter, but did not wear a mask with her. Patient thinks this was her initial exposure. Patient is not vaccinated against COVID 19. Vital signs in ED pulse 77 beats a minute respirations 22/min O2 saturations 83% on room air blood pressure 136/62. Temp 98.3 F Chest radiograph with interstitial infiltrates likely acute on chronic. EKG appears sinus rhythm rate of 80 bpm normal axes and intervals, QTC [address] segment elevations no T wave inversions. Labs WBC 6.5 Hb 12.6, platelets 341, NA 138, K3.3, BUN 15, CR 0.8, glucose 96, calcium 8.5, bilirubin 0.5, AST 39, ALT 25, alk phos 53, CK 79, albumin 2.5, high-sensitivity troponin XI, rapid influenza negative, rapid COVID-19 positive, rapid group A strep negative ABG on room air 7.5 She was placed on 5 L/min nasal cannula of oxygen and O2 saturations are 92%. Admitted for further care. Vitals/I&O Vitals/I&O: Vital Signs Date Time Temp Pulse Resp B/P (MAP) Pulse Ox O2 Delivery O2 Flow Rate FiO2 03/17/21 07:00 97.6 71 18 157/75 (102) 90 Nasal Cannula 7.0 97.6 I & O 03/16/21 03/16/21 03/17/21 15:00 23:00 07:00 Intake Total 220 ml Output Total 800 ml Balance 220 ml -800 ml Physical Exam General: Alert, Oriented X3, Cooperative, moderate distress Heart: Regular rate, No murmurs Lungs: Other Abdomen: Normal bowel sounds, Soft, No tenderness, No hepatosplenomegaly, No masses Extremities: No clubbing, No cyanosis, No edema, Normal pulses, No tenderness/swelling Skin: No rashes, No breakdown, No significant lesion Labs Labs: Laboratory Tests Test 03/17/21 05:55 White Blood Count 10.1 x10^3/uL (4.0-11.0) Red Blood Count 4.06 x10^6/uL (3.50-5.40) Hemoglobin 12.3 g/dL (12.0-15.5) Hematocrit 36.4 % (36.0-47.0) Mean Corpuscular Volume 90 fL (79-100) Mean Corpuscular Hemoglobin 30 pg (25-35) Mean Corpuscular Hemoglobin Concent 34 g/dL (31-37) Red Cell Distribution Width 13.9 % (11.5-14.5) Platelet Count 440 x10^3/uL (140-400) Neutrophils (%) (Auto) 87 % (31-73) Lymphocytes (%) (Auto) 6 % (24-48) Monocytes (%) (Auto) 7 % (0-9) Eosinophils (%) (Auto) 0 % (0-3) Basophils (%) (Auto) 0 % (0-3) Neutrophils # (Auto) 8.8 x10^3/uL (1.8-7.7) Lymphocytes # (Auto) 0.6 x10^3/uL (1.0-4.8) Monocytes # (Auto) 0.7 x10^3/uL (0.0-1.1) Eosinophils # (Auto) 0.0 x10^3/uL (0.0-0.7) Basophils # (Auto) 0.0 x10^3/uL (0.0-0.2) Sodium Level 144 mmol/L (136-145) Potassium Level 4.2 mmol/L (3.5-5.1) Chloride Level 108 mmol/L (98-107) Carbon Dioxide Level 26 mmol/L (21-32) Anion Gap 10 (6-14) Blood Urea Nitrogen 25 mg/dL (7-20) Creatinine 0.8 mg/dL (0.6-1.0) Estimated GFR (Cockcroft-Gault) 69.9 BUN/Creatinine Ratio 31 (6-20) Glucose Level 135 mg/dL (70-99) Calcium Level 8.6 mg/dL (8.5-10.1) Total Bilirubin 0.3 mg/dL (0.2-1.0) Aspartate Amino Transf (AST/SGOT) 48 U/L (15-37) Alanine Aminotransferase (ALT/SGPT) 52 U/L (14-59) Alkaline Phosphatase 52 U/L (46-116) Total Protein 6.4 g/dL (6.4-8.2) Albumin 2.2 g/dL (3.4-5.0) Albumin/Globulin Ratio 0.5 (1.0-1.7) Review of Systems Review of Systems: ROS negative except as noted in HPI. Assessment and Plan Assessmemt and Plan Assessment: SOB sore throat COVID-19 Hypoxic Plan: COVID-19 protocol Remdesivir (pt initially refused but now accepting) Rocephin Doxycycline Dexamethasone Beta agonist O2 Robutussin DVT ppx Encourage PO intake Appreciate sub-specialist input DNR Comment Review of Relevant I have reviewed the following items gold (where applicable) has been applied. Medications: Current Medications Medications (Trade) Dose Ordered Sig/Demar Route PRN Reason Start Time Stop Time Status Last Admin Dose Admin Ceftriaxone Sodium (Rocephin) 1 gm Q24H IVP 03/16/21 13:00 03/16/21 13:34 Doxycycline Hyclate 100 mg/ Dextrose 100 ml @ 50 mls/hr Q12HR IV 03/16/21 13:00 03/17/21 09:06 Remdesivir 200 mg/ Sodium Chloride 210 ml @ 210 mls/hr 1X ONCE IV 03/16/21 15:00 03/16/21 15:59 DC 03/16/21 15:37 Lactobacillus Rhamnosus (Culturelle) 1 cap BID PO 03/17/21 09:00 03/17/21 09:06 Justifications for Admission Other Justification EWELINA MONTERO III DO Mar 17, 2021 11:08
[2021-03-17] MEDS: cefTRIAXone IV Push 1 GM VIAL. IVP SCH (13:34)
[2021-03-17] MEDS: REMDESIVIR 100mg in NORMAL SALINE 250ML X 4 DAYS IV SCH (14:37)
[2021-03-17 15:00] VITALS: BP 165/80
[2021-03-17 19:00] VITALS: BP 150/72
[2021-03-17] MEDS: ENOXAPARIN 40 MG/0.4 ML SYRINGE. SQ SCH (20:23)
[2021-03-17] MEDS: PSYLLIUM HUSK (SUGAR FREE) 1 PKT PACKET PO SCH (20:23)
[2021-03-17 23:00] VITALS: BP 197/93
[2021-03-18] VITALS (7 sets, daily range): BP systolic 145–193; BP diastolic 66–102
[2021-03-18] MEDS: hydrALAZINE 20 MG/ML VIAL. IVP PRN (00:51)
[2021-03-18 04:42] LABS: BASO % 0 % (0-3); EOS % 0 % (0-3); HEMATOCRIT 38.6 % (36.0-47.0); HEMOGLOBIN 13.1 g/dL (12.0-15.5); LYMPH # 0.6 x10^3/uL (1.0-4.8); LYMPH % 6 % (24-48); MEAN CORPUSCULAR HEMOGLOBIN 30 pg (25-35); MEAN CORPUSCULAR HGB CONC 34 g/dL (31-37); MEAN CORPUSCULAR VOLUME 89 fL (79-100); MONO # 0.7 x10^3/uL (0.0-1.1); MONO % 7 % (0-9); NEUT # 8.9 x10^3/uL (1.8-7.7); NEUT % 87 % (31-73); PLATELET COUNT 486 x10^3/uL (140-400); RED BLOOD COUNT 4.35 x10^6/uL (3.50-5.40); RED CELL DISTRIBUTION WIDTH 13.9 % (11.5-14.5); WHITE BLOOD COUNT 10.2 x10^3/uL (4.0-11.0)
[2021-03-18 05:14] LABS: ALBUMIN 2.3 g/dL (3.4-5.0); ALBUMIN/GLOBULIN RATIO 0.6 (1.0-1.7); CALCIUM 8.4 mg/dL (8.5-10.1); CREATININE 0.8 mg/dL (0.6-1.0); GFR 69.9; POTASSIUM 4.2 mmol/L (3.5-5.1); TOTAL BILIRUBIN 0.3 mg/dL (0.2-1.0); TOTAL PROTEIN 6.3 g/dL (6.4-8.2)
[2021-03-18 06:30] LABS: % ATYL 1 % (0-0); % BANDS 5 % (0-9); % LYMPHS 4 % (24-48); % MONOS 5 % (0-10); % SEGS 85 % (35-66)
[2021-03-18 06:31] LABS: ANISOCYTOSIS SLIGHT; PLT ESTIMATE INCREASED (ADEQUATE)
--- NOTE | 2021-03-18 08:29 | PDOC ---
[employer] PROGRESS NOTE Date of Service DOS: DATE: 03/18/21 TIME: 08:25 Chief Complaint Chief Complaint SOB sore throat COVID-19 Hypoxic History of Present Illness History of Present Illness 03/18 Patient seen and examined bedside. Patient reports feeling about the same as yesterday. Chart reviewed. Discussed case with RN and administrator social welfare. 03/17 Patient seen and examined bedside. Patient reports feeling much better than yesterday. Chart reviewed. Discussed case with RN and administrator social welfare. 03/16 Patient seen and examined bedside. Patient pleasant and conversational. Discussed case with RN and administrator social welfare. Ms Medina is a 76yo female with PMHx TIA, seasonal allergies who presents to ED via private vehicle on 03/15/2021 c/o worsening SOB, sore throat, and fatigue for the past 3 days prior to admission. Over the past 48 hours prior to arrival she has been laying in bed and has not cooked for herself or eaten anything. She started developed diarrhea over the last day prior to arrival and almost had fecal accident in her bed. She told her grandson who lives with her that she was getting worse and needed to go to the hospital. She does note that over the past 4 days the food that she had cooked and tried to eat had tasted more salty and was losing its flavor. Denies fever, reports chills. 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 She helps transport her great granddaughter to school on a regular basis and on Tuesday03/06/2021 had to bring her great-granddaughter home early due to febrile illness took her great granddaughter to [facility] to be tested for COVID-19 and that test returned positive, and no one else in the family was tested. Patient thought she did not spend much time with her great-granddaughter, but did not wear a mask with her. Patient thinks this was her initial exposure. Patient is not vaccinated against COVID 19. Vital signs in ED pulse 77 beats a minute respirations 22/min O2 saturations 83% on room air blood pressure 136/62. Temp 98.3 F Chest radiograph with interstitial infiltrates likely acute on chronic. EKG appears sinus rhythm rate of 80 bpm normal axes and intervals, QTC [address] segment elevations no T wave inversions. Labs WBC 6.5 Hb 12.6, platelets 341, NA 138, K3.3, BUN 15, CR 0.8, glucose 96, calcium 8.5, bilirubin 0.5, AST 39, ALT 25, alk phos 53, CK 79, albumin 2.5, high-sensitivity troponin XI, rapid influenza negative, rapid COVID-19 positive, rapid group A strep negative ABG on room air 7. She was placed on 5 L/min nasal cannula of oxygen and O2 saturations are 92%. Admitted for further care. Vitals/I&O Vitals/I&O: Vital Signs Date Time Temp Pulse Resp B/P (MAP) Pulse Ox O2 Delivery O2 Flow Rate FiO2 03/18/21 05:00 172/80 (110) 03/18/21 03:00 96.8 90 18 94 Nasal Cannula 7.0 96.8 I & O 03/17/21 03/17/21 03/18/21 15:00 23:00 07:00 Intake Total 220 ml 440 ml Output Total 400 ml Balance 220 ml 40 ml Physical Exam General: Alert, Oriented X3, Cooperative, moderate distress Heart: Regular rate, No murmurs Lungs: Other Abdomen: Normal bowel sounds, Soft, No tenderness, No hepatosplenomegaly, No masses Extremities: No clubbing, No cyanosis, No edema, Normal pulses, No tendernes s/swelling Skin: No rashes, No breakdown, No significant lesion Labs Labs: Laboratory Tests Test 03/18/21 02:45 White Blood Count 10.2 x10^3/uL (4.0-11.0) Red Blood Count 4.35 x10^6/uL (3.50-5.40) Hemoglobin 13.1 g/dL (12.0-15.5) Hematocrit 38.6 % (36.0-47.0) Mean Corpuscular Volume 89 fL (79-100) Mean Corpuscular Hemoglobin 30 pg (25-35) Mean Corpuscular Hemoglobin Concent 34 g/dL (31-37) Red Cell Distribution Width 13.9 % (11.5-14.5) Platelet Count 486 x10^3/uL (140-400) Neutrophils (%) (Auto) 87 % (31-73) Lymphocytes (%) (Auto) 6 % (24-48) Monocytes (%) (Auto) 7 % (0-9) Eosinophils (%) (Auto) 0 % (0-3) Basophils (%) (Auto) 0 % (0-3) Neutrophils # (Auto) 8.9 x10^3/uL (1.8-7.7) Lymphocytes # (Auto) 0.6 x10^3/uL (1.0-4.8) Monocytes # (Auto) 0.7 x10^3/uL (0.0-1.1) Eosinophils # (Auto) 0.0 x10^3/uL (0.0-0.7) Basophils # (Auto) 0.0 x10^3/uL (0.0-0.2) Segmented Neutrophils % 85 % (35-66) Band Neutrophils % 5 % (0-9) Lymphocytes % 4 % (24-48) Atypical Lymphocytes % (Manual) 1 % (0-0) Monocytes % 5 % (0-10) Platelet Estimate Increased (ADEQUATE) Anisocytosis Slight Sodium Level 141 mmol/L (136-145) Potassium Level 4.2 mmol/L (3.5-5.1) Chloride Level 104 mmol/L (98-107) Carbon Dioxide Level 27 mmol/L (21-32) Anion Gap 10 (6-14) Blood Urea Nitrogen 26 mg/dL (7-20) Creatinine 0.8 mg/dL (0.6-1.0) Estimated GFR (Cockcroft-Gault) 69.9 BUN/Creatinine Ratio 33 (6-20) Glucose Level 137 mg/dL (70-99) Calcium Level 8.4 mg/dL (8.5-10.1) Total Bilirubin 0.3 mg/dL (0.2-1.0) Aspartate Amino Transf (AST/SGOT) 45 U/L (15-37) Alanine Aminotransferase (ALT/SGPT) 65 U/L (14-59) Alkaline Phosphatase 61 U/L (46-116) Total Protein 6.3 g/dL (6.4-8.2) Albumin 2.3 g/dL (3.4-5.0) Albumin/Globulin Ratio 0.6 (1.0-1.7) Review of Systems Review of Systems: ROS negative except as noted in HPI. Assessment and Plan Assessmemt and Plan Assessment: SOB sore throat COVID-19 Hypoxic Plan: COVID-19 protocol Remdesivir (pt initially refused but now accepting) Rocephin Doxycycline Dexamethasone Beta agonist O2 Robutussin DVT ppx Encourage PO intake PT/OT Appreciate sub-specialist input DNR Comment Review of Relevant I have reviewed the following items gold (where applicable) has been applied. Medications: Current Medications Medications (Trade) Dose Ordered Sig/Demar Route PRN Reason Start Time Stop Time Status Last Admin Dose Admin Remdesivir 100 mg/ Sodium Chloride 230 ml @ 460 mls/hr Q24H IV 03/17/21 15:00 03/20/21 15:29 03/17/21 14:37 Lactobacillus Rhamnosus (Culturelle) 1 cap BID PO 03/17/21 09:00 03/17/21 20:23 Justifications for Admission Other Justification EWELINA MONTERO III DO Mar 18, 2021 08:29
[2021-03-18] MEDS: DOXYCYCLINE HYCLATE 100 MG in IV DEXTROSE 5% 100ML 100 ML IV SCH ×2 (10:23→20:44)
[2021-03-18] MEDS: LACTOBACILLUS RHAMNOSUS GG 1 CAPSULE. PO SCH ×2 (10:24→20:44)
[2021-03-18] MEDS: ASCORBIC ACID 500 MG TABLET PO SCH (10:24)
[2021-03-18] MEDS: THIAMINE 100 MG TABLET. PO SCH (10:24)
[2021-03-18] MEDS: CETIRIZINE HCL 10 MG TABLET. PO SCH (10:24)
[2021-03-18] MEDS: DEXAMETHASONE SOD PHOS 4 MG/ML VIAL IVP SCH (10:25)
[2021-03-18] MEDS: ZINC SULFATE 220 MG CAPSULE. PO SCH (10:26)
--- NOTE | 2021-03-18 13:50 | NUR ---
Allergies and reactions tetanus and egg INR N/A BUN 26 Cr 0.8 Platelets 486 Blood culture done N/A blood culture results Order Verified Y Consent signed Y Previous PICC placement N Past Medical/Surgical history and current diagnosis reviewed Y Patient Medical /Surgical History Related to PICC line placement Infectious Disease consult Special considerations for PICC line placement Existing thrombosis/thrombophlebitis Infections PICC placement indication skilled nursing antibiotic usage, Multiple/ Frequent blood draws, Poor peripheral intravenous access Ting Rogers RN name of PICC Nurse
[2021-03-18] MEDS: cefTRIAXone IV Push 1 GM VIAL. IVP SCH (15:38)
[2021-03-18] MEDS: REMDESIVIR 100mg in NORMAL SALINE 250ML X 4 DAYS IV SCH (15:38)
--- NOTE | 2021-03-18 15:47 | NUR ---
Procedure: Following complete explanation of the PICC procedure including the indications, risks, and potential complications, informed consent was obtained. The possibility for infection was discussed along with signs, symptoms, and prevention. All the questions were answered. Written and verbal patient education was provided. Hand hygiene performed. Standardized central line checklist was utilized. The patient was placed in the supine position, the arm was prepped with chlorhexidine and patient draped with maximum sterile barrier. 5 mL 1% lidocaine was infiltrated into the skin to provide local anesthesia. A thorough assessment of right upper extremity completed. Using real-time ultrasound guidance and standardized micro puncture set, the brachial vein was punctured but wire access had unsuccessful advancement. Complications: Wire would not advance past axilla. No bleeding noted.
[2021-03-18] MEDS: PSYLLIUM HUSK (SUGAR FREE) 1 PKT PACKET PO SCH (20:44)
[2021-03-18] MEDS: ENOXAPARIN 40 MG/0.4 ML SYRINGE. SQ SCH (20:44)
[2021-03-19 03:00] VITALS: BP 180/83
[2021-03-19 07:00] VITALS: BP 144/60
[2021-03-19 08:30] LABS: BASO % 0 % (0-3); EOS % 0 % (0-3); HEMATOCRIT 39.8 % (36.0-47.0); HEMOGLOBIN 13.4 g/dL (12.0-15.5); LYMPH # 0.8 x10^3/uL (1.0-4.8); LYMPH % 9 % (24-48); MEAN CORPUSCULAR HEMOGLOBIN 30 pg (25-35); MEAN CORPUSCULAR HGB CONC 34 g/dL (31-37); MEAN CORPUSCULAR VOLUME 89 fL (79-100); MONO # 0.3 x10^3/uL (0.0-1.1); MONO % 4 % (0-9); NEUT # 7.5 x10^3/uL (1.8-7.7); NEUT % 87 % (31-73); PLATELET COUNT 475 x10^3/uL (140-400); RED CELL DISTRIBUTION WIDTH 13.8 % (11.5-14.5); WHITE BLOOD COUNT 8.6 x10^3/uL (4.0-11.0)
[2021-03-19 08:42] LABS: ALBUMIN 2.3 g/dL (3.4-5.0); ALBUMIN/GLOBULIN RATIO 0.6 (1.0-1.7); CALCIUM 8.3 mg/dL (8.5-10.1); CREATININE 0.7 mg/dL (0.6-1.0); GFR 81.6; POTASSIUM 3.9 mmol/L (3.5-5.1); TOTAL BILIRUBIN 0.4 mg/dL (0.2-1.0); TOTAL PROTEIN 6.1 g/dL (6.4-8.2)
[2021-03-19] MEDS: ASCORBIC ACID 500 MG TABLET PO SCH (09:09)
[2021-03-19] MEDS: CETIRIZINE HCL 10 MG TABLET. PO SCH (09:09)
[2021-03-19] MEDS: THIAMINE 100 MG TABLET. PO SCH (09:09)
[2021-03-19] MEDS: ZINC SULFATE 220 MG CAPSULE. PO SCH (09:09)
[2021-03-19] MEDS: LACTOBACILLUS RHAMNOSUS GG 1 CAPSULE. PO SCH ×2 (09:09→20:18)
[2021-03-19] MEDS: DEXAMETHASONE SOD PHOS 4 MG/ML VIAL IVP SCH (09:10)
[2021-03-19] MEDS: DOXYCYCLINE HYCLATE 100 MG in IV DEXTROSE 5% 100ML 100 ML IV SCH ×2 (09:10→21:22)
[2021-03-19] MEDS ORDERED: LIDOCAINE WITH 8.4% SOD BICARB 3 ML DISP.SYRIN. ONE (09:35)
[2021-03-19] MEDS ORDERED: LIDOCAINE WITH 8.4% SOD BICARB 3 ML DISP.SYRIN. INJ ONE (10:30)
--- NOTE | 2021-03-19 10:33 | NUR ---
SW following. Discussed with RN, pt from home with grandson, 15L NRB, regular diet. COVID-19 positive. RN advised no SW needs at this time. SW will continue to follow.
--- NOTE | 2021-03-19 10:48 | PDOC ---
[employer] PROGRESS NOTE Date of Service DOS: DATE: 03/19/21 TIME: 10:46 Chief Complaint Chief Complaint SOB sore throat COVID-19 Hypoxic History of Present Illness History of Present Illness 03/19 Patient seen and examined Chart reviewed DW RN 03/18 Patient seen and examined bedside. Patient reports feeling about the same as yesterday. Chart reviewed. Discussed case with RN and social science instructor. 03/17 Patient seen and examined bedside. Patient reports feeling much better than yesterday. Chart reviewed. Discussed case with RN and social science instructor. 03/16 Patient seen and examined bedside. Patient pleasant and conversational. Discussed case with RN and social science instructor. Ms Medina is a 76yo female with PMHx TIA, seasonal allergies who presents to ED via private vehicle on 03/15/2021 c/o worsening SOB, sore throat, and fatigue for the past 3 days prior to admission. Over the past 48 hours prior to arrival she has been laying in bed and has not cooked for herself or eaten anything. She started developed diarrhea over the last day prior to arrival and almost had fecal accident in her bed. She told her grandson who lives with her that she was getting worse and needed to go to the hospital. She does note that over the past 4 days the food that she had cooked and tried to eat had tasted more salty and was losing its flavor. Denies fever, reports chills. 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 She helps transport her great granddaughter to school on a regular basis and on Tuesday03/06/2021 had to bring her great- granddaughter home early due to febrile illness took her great granddaughter to [facility] to be tested for COVID-19 and that test returned positive, and no one else in the family was tested. Patient thought she did not spend much time with her great-granddaughter, but did not wear a mask with her. Patient thinks this was her initial exposure. Patient is not vaccinated against COVID 19. Vital signs in ED pulse 77 beats a minute respirations 22/min O2 saturations 83% on room air blood pressure 136/62. Temp 98.3 F Chest radiograph with interstitial infiltrates likely acute on chronic. EKG appears sinus rhythm rate of 80 bpm normal axes and intervals, QTC [address] segment elevations no T wave inversions. Labs WBC 6.5 Hb 12.6, platelets 341, NA 138, K3.3, BUN 15, CR 0.8, glucose 96, calcium 8.5, bilirubin 0.5, AST 39, ALT 25, alk phos 53, CK 79, albumin 2.5, high-sensitivity troponin XI, rapid influenza negative, rapid COVID-19 positive, rapid group A strep negative ABG on room air 7.5/46 She was placed on 5 L/min nasal cannula of oxygen and O2 saturations are 92%. Admitted for further care. Vitals/I&O Vitals/I&O: Vital Signs Date Time Temp Pulse Resp B/P (MAP) Pulse Ox O2 Delivery O2 Flow Rate FiO2 03/19/21 07:00 97.4 79 20 144/60 (88) 92 High Flow Nasal Cannula 12.0 97.4 I & O 03/18/21 03/18/21 03/19/21 15:00 23:00 07:00 Intake Total 100 ml Balance 100 ml Physical Exam General: Alert, Oriented X3, Cooperative, moderate distress Heart: Regular rate, No murmurs Lungs: Other Abdomen: Normal bowel sounds, Soft, No tenderness, No hepatosplenomegaly, No masses Extremities: No clubbing, No cyanosis, No edema, Normal pulses, No tend erness/swelling Skin: No rashes, No breakdown, No significant lesion Labs Labs: Laboratory Tests Test 03/19/21 08:05 White Blood Count 8.6 x10^3/uL (4.0-11.0) Red Blood Count 4.50 x10^6/uL (3.50-5.40) Hemoglobin 13.4 g/dL (12.0-15.5) Hematocrit 39.8 % (36.0-47.0) Mean Corpuscular Volume 89 fL (79-100) Mean Corpuscular Hemoglobin 30 pg (25-35) Mean Corpuscular Hemoglobin Concent 34 g/dL (31-37) Red Cell Distribution Width 13.8 % (11.5-14.5) Platelet Count 475 x10^3/uL (140-400) Neutrophils (%) (Auto) 87 % (31-73) Lymphocytes (%) (Auto) 9 % (24-48) Monocytes (%) (Auto) 4 % (0-9) Eosinophils (%) (Auto) 0 % (0-3) Basophils (%) (Auto) 0 % (0-3) Neutrophils # (Auto) 7.5 x10^3/uL (1.8-7.7) Lymphocytes # (Auto) 0.8 x10^3/uL (1.0-4.8) Monocytes # (Auto) 0.3 x10^3/uL (0.0-1.1) Eosinophils # (Auto) 0.0 x10^3/uL (0.0-0.7) Basophils # (Auto) 0.0 x10^3/uL (0.0-0.2) Sodium Level 140 mmol/L (136-145) Potassium Level 3.9 mmol/L (3.5-5.1) Chloride Level 103 mmol/L (98-107) Carbon Dioxide Level 27 mmol/L (21-32) Anion Gap 10 (6-14) Blood Urea Nitrogen 23 mg/dL (7-20) Creatinine 0.7 mg/dL (0.6-1.0) Estimated GFR (Cockcroft-Gault) 81.6 BUN/Creatinine Ratio 33 (6-20) Glucose Level 87 mg/dL (70-99) Calcium Level 8.3 mg/dL (8.5-10.1) Total Bilirubin 0.4 mg/dL (0.2-1.0) Aspartate Amino Transf (AST/SGOT) 24 U/L (15-37) Alanine Aminotransferase (ALT/SGPT) 49 U/L (14-59) Alkaline Phosphatase 59 U/L (46-116) Total Protein 6.1 g/dL (6.4-8.2) Albumin 2.3 g/dL (3.4-5.0) Albumin/Globulin Ratio 0.6 (1.0-1.7) Assessment and Plan Assessmemt and Plan Assessmemt and Plan Assessment: COVID-19 respiratory failure SOB sore throat Hypoxic Plan: Continue COVID-19 protocol Remdesivir Rocephin Doxycycline Dexamethasone Beta agonist O2 Robutussin DVT ppx Encourage PO intake PT/OT Appreciate sub-specialist input DNR Comment Review of Relevant I have reviewed the following items gold (where applicable) has been applied. Justifications for Admission Other Justification EWELINA MONTERO K III DO Mar 19, 2021 10:48
[2021-03-19 11:00] VITALS: BP 152/71
--- NOTE | 2021-03-19 11:14 | RAD ---
AP chest. HISTORY: PICC line placement, Covid positive AP view was taken of the chest. There are persistent infiltrates without change. There is a left arm PICC line which extends to the superior vena cava but the distal 2 cm of the line is either folded on itself or extends into the azygos vein. There are old left rib fractures. Heart is normal in size. IMPRESSION: 1. Distal PICC line is folded on itself or extends into the azygos vein. 2. No change infiltrates. The nurse on the floor was called and notified the findings at the time of dictation. Electronically signed by: Hussein Corley MD (03/19/2021 11:12 AM) [id number]
--- NOTE | 2021-03-19 13:34 | RAD ---
XR CHEST 1V 1:19 PM CLINICAL INDICATIONS: Reason: Repositon of PICC Line / Spl. Instructions: / History: COMPARISON: Same day performed at 10:44 AM FINDINGS/ IMPRESSION: The left upper extremity PICC line has been repositioned and the tip is now seen within t he upper aspect of the right atrium. Bilateral diffuse lung infiltrates are again evident. No pneumot horax or pleural effusion is seen. Electronically signed by: Jayro Estrada MD (03/19/2021 1:32 PM) [id number]
[2021-03-19] MEDS: cefTRIAXone IV Push 1 GM VIAL. IVP SCH (14:02)
[2021-03-19 15:00] VITALS: BP 160/85
--- NOTE | 2021-03-19 15:19 | RAD ---
Procedure: Upper extremity PICC line placement Clinical Indication: Adult female requiring central venous access. Sedation: Local anesthesia only was provided Antibiotics: None Fluoro Time: Not applicable Contrast: None Sterility: All elements of maximal sterile barrier technique including the use of a cap, mask, sterile gown, sterile gloves, large sterile sheet, appropriate hand hygiene, and 2% chlorhexidine for cutaneous antisepsis (or acceptable alternative antiseptic per current guidelines) were followed for this procedure. Consent: The procedure was explained in its entirety to the patient or the patients designated access services representative by a member of the treatment team, including a discussion of the risks, benefits and commonly accepted alternatives to the procedure, as well as the expected consequences of no therapy whatsoever. Discussion of the risks included, but was not limited to, those that are most frequent and those that are rare but possibly severe or life-threatening, as well as the possibility of unforeseen complications. Technique and Findings: Following informed consent, the patient was prepped and draped in the usual sterile fashion. Ultrasound interrogation of the left arm revealed patency and compressibility of the left basilic vein. A hard copy ultrasound image was recorded. 1% Lidocaine was used to achieve local anesthesia and a 21-gauge micropuncture needle was used to gain access to the targeted vein. The needle was exchanged over wire for a 5 Hungarian peel-away sheath which was used to deploy a PICC line to the expected location of the cavoatrial junction. The catheter flushed and aspirated with ease and was sutured to the skin. A chest x-ray was obtained to assess line position. The distal tip of the line was folded upon itself. Consequently, the patient was again prepped and draped in the usual sterile fashion and the PICC was manipulated over a wire. The wire was removed and another CXR was obtained demonstrating good position of the PICC line, deemed suitable for use. Complications: No immediate Impression: 1. Ultrasound guided PICC line placement as described.
[2021-03-19] MEDS: REMDESIVIR 100mg in NORMAL SALINE 250ML X 4 DAYS IV SCH (16:04)
[2021-03-19 19:00] VITALS: BP 179/75
[2021-03-19] MEDS: PSYLLIUM HUSK (SUGAR FREE) 1 PKT PACKET PO SCH (20:18)
[2021-03-19] MEDS: ENOXAPARIN 40 MG/0.4 ML SYRINGE. SQ SCH (20:18)
[2021-03-19 23:51] VITALS: BP 147/58
[2021-03-20 03:30] VITALS: BP 179/78
[2021-03-20 06:21] LABS: CALCIUM 8.2 mg/dL (8.5-10.1); CREATININE 0.6 mg/dL (0.6-1.0); GFR 97.5; POTASSIUM 4.4 mmol/L (3.5-5.1)
[2021-03-20 07:00] VITALS: BP 173/87
[2021-03-20] MEDS: THIAMINE 100 MG TABLET. PO SCH (09:48)
[2021-03-20] MEDS: ZINC SULFATE 220 MG CAPSULE. PO SCH (09:48)
[2021-03-20] MEDS: CETIRIZINE HCL 10 MG TABLET. PO SCH (09:48)
[2021-03-20] MEDS: ASCORBIC ACID 500 MG TABLET PO SCH (09:48)
[2021-03-20] MEDS: LACTOBACILLUS RHAMNOSUS GG 1 CAPSULE. PO SCH ×2 (09:48→20:54)
[2021-03-20] MEDS: DEXAMETHASONE SOD PHOS 4 MG/ML VIAL IVP SCH (09:48)
[2021-03-20] MEDS: DOXYCYCLINE HYCLATE 100 MG in IV DEXTROSE 5% 100ML 100 ML IV SCH ×2 (09:49→20:54)
--- NOTE | 2021-03-20 10:17 | NUR ---
SW following. Discussed with RN, pt from home with grandson, [id number], COVID-19 positive. Pt had PICC placed yesterday. RN advised no SW needs at this time. SW will continue to follow.
[2021-03-20 11:00] VITALS: BP 150/69
[2021-03-20] MEDS: cefTRIAXone IV Push 1 GM VIAL. IVP SCH (13:52)
[2021-03-20 15:00] VITALS: BP 119/68
[2021-03-20] MEDS: REMDESIVIR 100mg in NORMAL SALINE 250ML X 4 DAYS IV SCH (15:39)
[2021-03-20 19:00] VITALS: BP 149/63
--- NOTE | 2021-03-20 20:22 | PDOC ---
[employer] [facility] PROGRESS NOTE Date of Service DOS: DATE: 03/20/21 TIME: 20:21 Chief Complaint Chief Complaint SOB sore throat COVID-19 Hypoxic History of Present Illness History of Present Illness 03/20 Patient evaluated and examined at bedside. Reviewed her chart. She was doing well very pleasant. Says she still has some ongoing shortness of breath. Plan of care discussed with bedside RN. 03/19 Patient seen and examined Chart reviewed DW RN 03/18 Patient seen and examined bedside. Patient reports feeling about the same as yesterday. Chart reviewed. Discussed case with RN and social media sr strategy manager. 03/17 Patient seen and examined bedside. Patient reports feeling much better than yesterday. Chart reviewed. Discussed case with RN and social media sr strategy manager. 03/16 Patient seen and examined bedside. Patient pleasant and conversational. Discussed case with RN and social media sr strategy manager. Ms Medina is a 76yo female with PMHx TIA, seasonal allergies who presents to ED via private vehicle on 03/15/2021 c/o worsening SOB, sore throat, and fatigue for the past 3 days prior to admission. Over the past 48 hours prior to arrival she has been laying in bed and has not cooked for herself or eaten anything. She started developed diarrhea over the last day prior to arrival and almost had fecal accident in her bed. She told her grandson who lives with her that she was getting worse and needed to go to the hospital. She does note that over the past 4 days the food that she had cooked and tried to eat had tasted more salty and was losing its flavor. Denies fever, reports chills. 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 She helps transport her great granddaughter to school on a regular basis and on Tuesday03/06/2021 had to bring her great-granddaughter home early due to febrile illness took her great granddaughter to [facility] to be tested for COVID-19 and that test returned po sitive, and no one else in the family was tested. Patient thought she did not spend much time with her great-granddaughter, but did not wear a mask with her. Patient thinks this was her initial exposure. Patient is not vaccinated against COVID 19. Vital signs in ED pulse 77 beats a minute respirations 22/min O2 saturations 83% on room air blood pressure 136/62. Temp 98.3 F Chest radiograph with interstitial infiltrates likely acute on chronic. EKG appears sinus rhythm rate of 80 bpm normal axes and intervals, QTC [address] segment elevations no T wave inversions. Labs WBC 6.5 Hb 12.6, platelets 341, NA 138, K3.3, BUN 15, CR 0.8, glucose 96, calcium 8.5, bilirubin 0.5, AST 39, ALT 25, alk phos 53, CK 79, albumin 2.5, high-sensitivity troponin XI, rapid influenza negative, rapid COVID-19 positive, rapid group A strep negative ABG on room air 7. She was placed on 5 L/min nasal cannula of oxygen and O2 saturations are 92%. Admitted for further care. Vitals/I&O Vitals/I&O: Vital Signs Date Time Temp Pulse Resp B/P (MAP) Pulse Ox O2 Delivery O2 Flow Rate FiO2 03/20/21 19:00 98.5 82 20 149/63 (91) 93 NonRebreather Mask 15.0 98.5 I & O 03/19/21 03/19/21 03/20/21 15:00 23:00 07:00 Intake Total 100 ml Balance 100 ml Physical Exam General: Alert, Oriented X3, Cooperative, moderate distress Heart: Regular rate, No murmurs Lungs: Other Abdomen: Normal bowel sounds, Soft, No tenderness, No hepatosplenomegaly, No masses Extremities: No clubbing, No cyanosis, No edema, Normal pulses, No tenderness/swelling Skin: No rashes, No breakdown, No significant lesion Labs Labs: Laboratory Tests Test 03/20/21 05:50 Sodium Level 139 mmol/L (136-145) Potassium Level 4.4 mmol/L (3.5-5.1) Chloride Level 104 mmol/L (98-107) Carbon Dioxide Level 28 mmol/L (21-32) Anion Gap 7 (6-14) Blood Urea Nitrogen 22 mg/dL (7-20) Creatinine 0.6 mg/dL (0.6-1.0) Estimated GFR (Cockcroft-Gault) 97.5 Glucose Level 96 mg/dL (70-99) Calcium Level 8.2 mg/dL (8.5-10.1) Assessment and Plan Assessmemt and Plan Problems Medical Problems: (1) COVID-19 Status: Acute (2) Hypoxic Status: Acute (3) Person under investigation for COVID-19 Status: Acute Comment Review of Relevant I have reviewed the following items gold (where applicable) has been applied. Justifications for Admission Other Justification LUIS ANTONIO HADLEY MD Mar 20, 2021 20:22
[2021-03-20] MEDS: ENOXAPARIN 40 MG/0.4 ML SYRINGE. SQ SCH (20:54)
[2021-03-20] MEDS: PSYLLIUM HUSK (SUGAR FREE) 1 PKT PACKET PO SCH (20:54)
[2021-03-20 23:26] VITALS: BP 147/71
[2021-03-21 03:42] VITALS: BP 135/89
[2021-03-21 07:00] VITALS: BP 126/65
[2021-03-21 08:35] LABS: CALCIUM 8.4 mg/dL (8.5-10.1); CREATININE 0.7 mg/dL (0.6-1.0); GFR 81.6; POTASSIUM 4.6 mmol/L (3.5-5.1)
[2021-03-21] MEDS: LACTOBACILLUS RHAMNOSUS GG 1 CAPSULE. PO SCH ×2 (08:55→21:03)
[2021-03-21] MEDS: DOXYCYCLINE HYCLATE 100 MG in IV DEXTROSE 5% 100ML 100 ML IV SCH ×2 (08:55→21:03)
[2021-03-21] MEDS: DEXAMETHASONE SOD PHOS 4 MG/ML VIAL IVP SCH (08:55)
[2021-03-21] MEDS: THIAMINE 100 MG TABLET. PO SCH (08:55)
[2021-03-21] MEDS: ASCORBIC ACID 500 MG TABLET PO SCH (08:55)
[2021-03-21] MEDS: ZINC SULFATE 220 MG CAPSULE. PO SCH (08:55)
[2021-03-21] MEDS: CETIRIZINE HCL 10 MG TABLET. PO SCH (08:55)
--- NOTE | 2021-03-21 10:23 | PDOC ---
[employer] [facility] PROGRESS NOTE Date of Service DOS: DATE: 03/21/21 TIME: 10:20 Chief Complaint Chief Complaint SOB sore throat COVID-19 Hypoxic History of Present Illness History of Present Illness 03/21 Patient seen and examined Resting comfortably in bed SUAD RN Chart reviewed 03/20 Patient evaluated and examined at bedside. Reviewed her chart. She was doing well very pleasant. Says she still has some ongoing shortness of breath. Plan of care discussed with bedside RN. 03/19 Patient seen and examined Chart reviewed SUAD RN 03/18 Patient seen and examined bedside. Patient reports feeling about the same as yesterday. Chart reviewed. Discussed case with RN and social media manager. 03/17 Patient seen and examined bedside. Patient reports feeling much better than yesterday. Chart reviewed. Discussed case with RN and social media manager. 03/16 Patient seen and examined bedside. Patient pleasant and conversational. Discussed case with RN and social media manager. Ms Medina is a 76yo female with PMHx TIA, seasonal allergies who presents to ED via private vehicle on 03/15/2021 c/o worsening SOB, sore throat, and fatigue for the past 3 days prior to admission. Over the past 48 hours prior to arrival she has been laying in bed and has not cooked for herself or eaten anything. She started developed diarrhea over the last day prior to arrival and almost had fecal accident in her bed. She told her grandson who lives with her that she was getting worse and needed to go to the hospital. She does note that over the past 4 days the food that she had cooked and tried to eat had tasted more salty and was losing its flavor. Denies fever, reports chills. 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 She helps transport her great granddaughter to school on a regular basis and on Tuesday03/06/2021 had to bring her great- granddaughter home early due to febrile illness took her great granddaughter to [facility] to be tested for COVID-19 and that test returned positive, and no one else in the family was tested. Patient thought she did not spend much time with her great-granddaughter, but did not wear a mask with her. Patient thinks this was her initial exposure. Patient is not vaccinated against COVID 19. Vital signs in ED pulse 77 beats a minute respirations 22/min O2 saturations 83% on room air blood pressure 136/62. Temp 98.3 F Chest radiograph with interstitial infiltrates likely acute on chronic. EKG appears sinus rhythm rate of 80 bpm normal axes and intervals, QTC [address] segment elevations no T wave inversions. Labs WBC 6.5 Hb 12.6, platelets 341, NA 138, K3.3, BUN 15, CR 0.8, glucose 96, calcium 8.5, bilirubin 0.5, AST 39, ALT 25, alk phos 53, CK 79, albumin 2.5, high-sensitivity troponin XI, rapid influenza negative, rapid COVID-19 positive, rapid group A strep negative ABG on room air 7. She was placed on 5 L/min nasal cannula of oxygen and O2 saturations are 92%. Admitted for further care. Vitals/I&O Vitals/I&O: Vital Signs Date Time Temp Pulse Resp B/P (MAP) Pulse Ox O2 Delivery O2 Flow Rate FiO2 03/21/21 08:00 Non-Rebreather 15.0 03/21/21 07:00 96.7 88 20 126/65 (85) 97 96.7 I & O 03/20/21 03/20/21 03/21/21 15:00 23:00 07:00 Intake Total 250 ml Output Total 2 ml Balance -2 ml 250 ml Physical Exam General: Alert, Oriented X3, Cooperative, moderate distress Heart: Regular rate, No murmurs Lungs: Other Abdomen: Normal bowel sounds, Soft, No tenderness, No hepatosplenomegaly, No masses Extremities: No clubbing, No cyanosis, No edema, Normal pulses, No tenderness/swelling Skin: No rashes, No breakdown, No significant lesion Labs Labs: Laboratory Tests Test 03/21/21 07:55 Sodium Level 138 mmol/L (136-145) Potassium Level 4.6 mmol/L (3.5-5.1) Chloride Level 104 mmol/L (98-107) Carbon Dioxide Level 28 mmol/L (21-32) Anion Gap 6 (6-14) Blood Urea Nitrogen 24 mg/dL (7-20) Creatinine 0.7 mg/dL (0.6-1.0) Estimated GFR (Cockcroft-Gault) 81.6 Glucose Level 93 mg/dL (70-99) Calcium Level 8.4 mg/dL (8.5-10.1) Assessment and Plan Assessmemt and Plan Assessment: COVID-19 respiratory failure SOB sore throat Hypoxic Plan: Completed Remdesivir yesterday Continue COVID-19 protocol Rocephin Doxycycline Dexamethasone Beta agonist O2 Robutussin DVT ppx Encourage PO intake PT/OT Appreciate sub-specialist input DNR Comment Review of Relevant I have reviewed the following items gold (where applicable) has been applied. Justifications for Admission Other Justification EWELINA MONTERO III DO Mar 21, 2021 10:23
[2021-03-21 11:00] VITALS: BP 146/59
[2021-03-21] MEDS: cefTRIAXone IV Push 1 GM VIAL. IVP SCH (12:46)
--- NOTE | 2021-03-21 14:55 | NUR ---
Patients daughter works for [employer] and if patient needs oxygen to go home with they would like to utilize [employer].
[2021-03-21 15:00] VITALS: BP 152/65
[2021-03-21 19:00] VITALS: BP 171/90
[2021-03-21] MEDS: PSYLLIUM HUSK (SUGAR FREE) 1 PKT PACKET PO SCH (21:02)
[2021-03-21] MEDS: ENOXAPARIN 40 MG/0.4 ML SYRINGE. SQ SCH (21:02)
[2021-03-21 23:00] VITALS: BP 185/77
[2021-03-22 03:00] VITALS: BP 198/80
[2021-03-22] MEDS: hydrALAZINE 20 MG/ML VIAL. IVP PRN (06:03)
[2021-03-22 07:54] VITALS: BP 106/57
[2021-03-22] MEDS: DEXAMETHASONE SOD PHOS 4 MG/ML VIAL IVP SCH (10:31)
[2021-03-22] MEDS: ASCORBIC ACID 500 MG TABLET PO SCH (10:31)
[2021-03-22] MEDS: CETIRIZINE HCL 10 MG TABLET. PO SCH (10:31)
[2021-03-22] MEDS: THIAMINE 100 MG TABLET. PO SCH (10:31)
[2021-03-22] MEDS: LACTOBACILLUS RHAMNOSUS GG 1 CAPSULE. PO SCH ×2 (10:31→21:37)
[2021-03-22] MEDS: DOXYCYCLINE HYCLATE 100 MG in IV DEXTROSE 5% 100ML 100 ML IV SCH ×2 (10:33→21:37)
[2021-03-22] MEDS: ZINC SULFATE 220 MG CAPSULE. PO SCH (10:33)
[2021-03-22 10:45] VITALS: BP 130/58
--- NOTE | 2021-03-22 11:17 | PDOC ---
[facility] [facility] PROGRESS NOTE Date of Service DOS: DATE: 03/22/21 TIME: 11:15 Chief Complaint Chief Complaint SOB sore throat COVID-19 Hypoxic History of Present Illness History of Present Illness 03/22/2021 Patient seen and examined Discussed with RN Chart reviewed She is currently on O2 per nasal cannula at 10 L satting 95% 03/21 Patient seen and examined Resting comfortably in bed DW RN Chart reviewed 03/20 Patient evaluated and examined at bedside. Reviewed her chart. She was doing well very pleasant. Says she still has some ongoing shortness of breath. Plan of care discussed with bedside RN. 03/19 Patient seen and examined Chart reviewed DW RN 03/18 Patient seen and examined bedside. Patient reports feeling about the same as yesterday. Chart reviewed. Discussed case with RN and nursing home social worker. 03/17 Patient seen and examined bedside. Patient reports feeling much better than yesterday. Chart reviewed. Discussed case with RN and nursing home social worker. 03/16 Patient seen and examined bedside. Patient pleasant and conversational. Discussed case with RN and nursing home social worker. Ms Medina is a 76yo female with PMHx TIA, seasonal allergies who presents to ED via private vehicle on 03/15/2021 c/o worsening SOB, sore throat, and fatigue for the past 3 days prior to admission. Over the past 48 hours prior to arrival she has been laying in bed and has not cooked for herself or eaten anything. She started developed diarrhea over the last day prior to arrival and almost had fecal accident in her bed. She told her grandson who lives with her that she was getting worse and needed to go to the hospital. She does note that over the past 4 days the food that she had cooked and tried to eat had tasted more salty and was losing its flavor. Denies fever, reports chills. 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 She helps transport her great granddaughter to school on a regular basis and on Tuesday03/06/2021 had to bring her great- granddaughter home early due to febrile illness took her great granddaughter to [facility] to be tested for COVID-19 and that test returned positive, and no one else in the family was tested. Patient thought she did not spend much time with her great-granddaughter, but did not wear a mask with her. Patient thinks this was her initial exposure. Patient is not vaccinated against COVID 19. Vital signs in ED pulse 77 beats a minute respirations 22/min O2 saturations 83% on room air blood pressure 136/62. Temp 98.3 F Chest radiograph with interstitial infiltrates likely acute on chronic. EKG appears sinus rhythm rate of 80 bpm normal axes and intervals, QTC [address] segment elevations no T wave inversions. Labs WBC 6.5 Hb 12.6, platelets 341, NA 138, K3.3, BUN 15, CR 0.8, glucose 96, calcium 8.5, bilirubin 0.5, AST 39, ALT 25, alk phos 53, CK 79, albumin 2.5, high-sensitivity troponin XI, rapid influenza negative, rapid COVID-19 positive, rapid group A strep negative ABG on room air 7. She was placed on 5 L/min nasal cannula of oxygen and O2 saturations are 92%. Admitted for further care. Vitals/I&O Vitals/I&O: Vital Signs Date Time Temp Pulse Resp B/P (MAP) Pulse Ox O2 Delivery O2 Flow Rate FiO2 03/22/21 10:45 97.6 70 16 130/58 (82) 93 Nasal Cannula 12.0 97.6 I & O 03/21/21 03/21/21 03/22/21 15:00 23:00 07:00 Intake Total 240 ml 440 ml 700 ml Output Total 300 ml Balance 240 ml 140 ml 700 ml Physical Exam General: Alert, Oriented X3, Cooperative, moderate distress Heart: Regular rate, No murmurs Lungs: Other Abdomen: Normal bowel sounds, Soft, No tenderness, No hepatosplenomegaly, No masses Extremities: No clubbing, No cyanosis, No edema, Normal pulses, No tenderness/swelling Skin: No rashes, No breakdown, No significant lesion Assessment and Plan Assessmemt and Plan Problems Medical Problems: (1) COVID-19 Status: Acute (2) Hypoxic Status: Acute (3) Person under investigation for COVID-19 Status: Acute Assessment: COVID-19 respiratory failure SOB sore throat Hypoxic Plan: Has completed Remdesivir Continue other COVID-19 protocol: Rocephin Doxycycline Dexamethasone Beta agonist O2 Robutussin DVT ppx Encourage PO intake PT/OT Appreciate sub-specialist input DNR Comment Review of Relevant I have reviewed the following items gold (where applicable) has been applied. Justifications for Admission Other Justification EWELINA MONTERO III DO Mar 22, 2021 11:17
[2021-03-22 11:21] LABS: CALCIUM 8.6 mg/dL (8.5-10.1); CREATININE 0.8 mg/dL (0.6-1.0); GFR 69.9
[2021-03-22] MEDS: cefTRIAXone IV Push 1 GM VIAL. IVP SCH (12:43)
[2021-03-22] MEDS: ASPIRIN CHEWABLE 81 MG TABLET. PO SCH (12:43)
[2021-03-22 15:00] VITALS: BP 144/61
[2021-03-22 19:00] VITALS: BP 178/64
[2021-03-22] MEDS: PSYLLIUM HUSK (SUGAR FREE) 1 PKT PACKET PO SCH (21:38)
[2021-03-22] MEDS: ENOXAPARIN 40 MG/0.4 ML SYRINGE. SQ SCH (21:38)
[2021-03-22 23:00] VITALS: BP 140/51
[2021-03-23 03:00] VITALS: BP 145/72
[2021-03-23 06:16] LABS: CALCIUM 8.3 mg/dL (8.5-10.1); CREATININE 0.7 mg/dL (0.6-1.0); GFR 81.6; POTASSIUM 4.4 mmol/L (3.5-5.1)
[2021-03-23 07:00] VITALS: BP 147/69
[2021-03-23] MEDS: THIAMINE 100 MG TABLET. PO SCH (10:40)
[2021-03-23] MEDS: ASCORBIC ACID 500 MG TABLET PO SCH (10:40)
[2021-03-23] MEDS: ZINC SULFATE 220 MG CAPSULE. PO SCH (10:40)
[2021-03-23] MEDS: DEXAMETHASONE SOD PHOS 4 MG/ML VIAL IVP SCH (10:40)
[2021-03-23] MEDS: CETIRIZINE HCL 10 MG TABLET. PO SCH (10:40)
[2021-03-23] MEDS: LACTOBACILLUS RHAMNOSUS GG 1 CAPSULE. PO SCH ×2 (10:40→23:10)
[2021-03-23] MEDS: ASPIRIN CHEWABLE 81 MG TABLET. PO SCH (10:41)
[2021-03-23] MEDS: DOXYCYCLINE HYCLATE 100 MG in IV DEXTROSE 5% 100ML 100 ML IV SCH ×2 (10:41→23:10)
[2021-03-23 11:00] VITALS: BP 145/71
--- NOTE | 2021-03-23 11:04 | NUR ---
SW following. Discussed with RN, pt from home with [facility] (does not use oxygen at home - would like [employer] if needed). COVID-19 positive. Therapy recommending home health. Possible discharge home tomorrow. SW will continue to follow.
--- NOTE | 2021-03-23 11:57 | PDOC ---
[employer] PROGRESS NOTE Date of Service DOS: DATE: 03/23/21 TIME: 11:56 Chief Complaint Chief Complaint SOB sore throat COVID-19 Hypoxic History of Present Illness History of Present Illness 03/23/2021 Patient seen and examined Her O2 per nasal cannula is down to 6 L she is satting 92% Discussed with RN Chart reviewed 03/22/2021 Patient seen and examined Discussed with RN Chart reviewed She is currently on O2 per nasal cannula at 10 L satting 95% 03/21 Patient seen and examined Resting comfortably in bed DW RN Chart reviewed 03/20 Patient evaluated and examined at bedside. Reviewed her chart. She was doing well very pleasant. Says she still has some ongoing shortness of breath. Plan of care discussed with bedside RN. 03/19 Patient seen and examined Chart reviewed DW RN 03/18 Patient seen and examined bedside. Patient reports feeling about the same as yesterday. Chart reviewed. Discussed case with RN and social secretary. 03/17 Patient seen and examined bedside. Patient reports feeling much better than yesterday. Chart reviewed. Discussed case with RN and social secretary. 03/16 Patient seen and examined bedside. Patient pleasant and conversational. Discussed case with RN and social secretary. Ms Medina is a 76yo female with PMHx TIA, seasonal allergies who presents to ED via private vehicle on 03/15/2021 c/o worsening SOB, sore throat, and fatigue for the past 3 days prior to admission. Over the past 48 hours prior to arrival she has been laying in bed and has not cooked for herself or eaten anything. She started developed diarrhea over the last day prior to arrival and almost had fecal accident in her bed. She told her grandson who lives with her that she was getting worse and needed to go to the hospital. She does note that over the past 4 days the food that she had cooked and tried to eat had tasted more salty and was losing its flavor. Denies fever, reports chills. 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 She helps transport her great granddaughter to school on a regular basis and on Tuesday03/06/2021 had to bring her great- granddaughter home early due to febrile illness took her great granddaughter to [facility] to be tested for COVID-19 and that test returned positive, and no one else in the family was tested. Patient thought she did not spend much time with her great-granddaughter, but did not wear a mask with her. Patient thinks this was her initial exposure. Patient is not vaccinated against COVID 19. Vital signs in ED pulse 77 beats a minute respirations 22/min O2 saturations 83% on room air blood pressure 136/62. Temp 98.3 F Chest radiograph with interstitial infiltrates likely acute on chronic. EKG appears sinus rhythm rate of 80 bpm normal axes and intervals, QTC [address] segment elevations no T wave inversions. Labs WBC 6.5 Hb 12.6, platelets 341, NA 138, K3.3, BUN 15, CR 0.8, glucose 96, calcium 8.5, bilirubin 0.5, AST 39, ALT 25, alk phos 53, CK 79, albumin 2.5, high-sensitivity troponin XI, rapid influenza negative, rapid COVID-19 positive, rapid group A strep negative ABG on room air 7.5/ She was placed on 5 L/min nasal cannula of oxygen and O2 saturations are 92%. Admitted for further care. Vitals/I&O Vitals/I&O: Vital Signs Date Time Temp Pulse Resp B/P (MAP) Pulse Ox O2 Delivery O2 Flow Rate FiO2 03/23/21 07:00 96.5 68 20 147/69 (95) 94 Nasal Cannula 12.0 96.5 I & O 03/22/21 03/22/21 03/23/21 15:00 23:00 07:00 Intake Total 820 ml 440 ml 400 ml Output Total 300 ml 400 ml Balance 820 ml 140 ml 0 ml Physical Exam General: Alert, Oriented X3, Cooperative, mild distress Heart: Regular rate, No murmurs Lungs: Other Abdomen: Normal bowel sounds, Soft, No tenderness, No hepatosplenomegaly, No masses Extremities: No clubbing, No cyanosis, No edema, Normal pulses, No tenderness/swelling Skin: No rashes, No breakdown, No significant lesion Labs Labs: Laboratory Tests Test 03/23/21 05:55 Sodium Level 137 mmol/L (136-145) Potassium Level 4.4 mmol/L (3.5-5.1) Chloride Level 103 mmol/L (98-107) Carbon Dioxide Level 31 mmol/L (21-32) Anion Gap 3 (6-14) Blood Urea Nitrogen 19 mg/dL (7-20) Creatinine 0.7 mg/dL (0.6-1.0) Estimated GFR (Cockcroft-Gault) 81.6 Glucose Level 102 mg/dL (70-99) Calcium Level 8.3 mg/dL (8.5-10.1) Assessment and Plan Assessmemt and Plan Problems Medical Problems: (1) COVID-19 Status: Acute (2) Hypoxic Status: Acute (3) Person under investigation for COVID-19 Status: Acute COVID-19 respiratory failure SOB sore throat Hypoxic Plan: Has completed Remdesivir Continue other COVID-19 protocol: Once we titrate the O2 down to 2 L we could probably let her get home hopefully tomorrow the next day? Rocephin Doxycycline Dexamethasone Beta agonist O2 Robutussin DVT ppx Encourage PO intake PT/OT DNR Comment Review of Relevant I have reviewed the following items gold (where applicable) has been applied. Medications: Current Medications Medications (Trade) Dose Ordered Sig/Demar Route PRN Reason Start Time Stop Time Status Last Admin Dose Admin Aspirin (Aspirin Chewable) 81 mg [id number] PO 03/22/21 12:00 03/23/21 10:41 Justifications for Admission Other Justification EWELINA MONTERO III DO Mar 23, 2021 11:57
[2021-03-23] MEDS: cefTRIAXone IV Push 1 GM VIAL. IVP SCH (13:34)
[2021-03-23 15:00] VITALS: BP 138/75
[2021-03-23 19:00] VITALS: BP 144/60
[2021-03-23] MEDS: PSYLLIUM HUSK (SUGAR FREE) 1 PKT PACKET PO SCH (23:10)
[2021-03-23] MEDS: ENOXAPARIN 40 MG/0.4 ML SYRINGE. SQ SCH (23:10)
[2021-03-23 23:51] VITALS: BP 181/73
[2021-03-24 03:09] VITALS: BP 157/75
[2021-03-24 07:00] VITALS: BP 169/65
[2021-03-24] MEDS: ASPIRIN CHEWABLE 81 MG TABLET. PO SCH (07:55)
[2021-03-24] MEDS: DOXYCYCLINE HYCLATE 100 MG in IV DEXTROSE 5% 100ML 100 ML IV SCH (10:30)
[2021-03-24] MEDS: DEXAMETHASONE SOD PHOS 4 MG/ML VIAL IVP SCH (10:32)
[2021-03-24] MEDS: ASCORBIC ACID 500 MG TABLET PO SCH (10:33)
[2021-03-24] MEDS: THIAMINE 100 MG TABLET. PO SCH (10:33)
[2021-03-24] MEDS: LACTOBACILLUS RHAMNOSUS GG 1 CAPSULE. PO SCH ×2 (10:33→21:46)
[2021-03-24] MEDS: ZINC SULFATE 220 MG CAPSULE. PO SCH (10:33)
[2021-03-24] MEDS: CETIRIZINE HCL 10 MG TABLET. PO SCH (10:33)
--- NOTE | 2021-03-24 10:37 | NUR ---
SW following. Discussed with RN, pt from home with alejandro, 6 minute walk today to determine oxygen needs. Pt wanting [facility]. LUIS ENRIQUE spoke with Kenzie at [facility] to see if a tank could be delivered to SW now for pt to go home with. Awaiting return call. LUIS ENRIQUE will continue to follow.
[2021-03-24 11:00] VITALS: BP 132/62
[2021-03-24 11:35] LABS: CALCIUM 8.3 mg/dL (8.5-10.1); CREATININE 0.7 mg/dL (0.6-1.0); GFR 81.6; POTASSIUM 3.9 mmol/L (3.5-5.1)
[2021-03-24] MEDS: cefTRIAXone IV Push 1 GM VIAL. IVP SCH (13:16)
--- NOTE | 2021-03-24 13:25 | PDOC ---
[employer] PROGRESS NOTE Date of Service DOS: DATE: 03/24/21 TIME: 13:24 Chief Complaint Chief Complaint SOB sore throat COVID-19 Hypoxic History of Present Illness History of Present Illness 03/24/2021 Patient seen and examined She is on 5 L of oxygen satting 87 to 91% Discussed with RN Chart reviewed Patient very anxious to go home 03/23/2021 Patient seen and examined Her O2 per nasal cannula is down to 6 L she is satting 92% Discussed with RN Chart reviewed 03/22/2021 Patient seen and examined Discussed with RN Chart reviewed She is currently on O2 per nasal cannula at 10 L satting 95% 03/21 Patient seen and examined Resting comfortably in bed DW RN Chart reviewed 03/20 Patient evaluated and examined at bedside. Reviewed her chart. She was doing well very pleasant. Says she still has some ongoing shortness of breath. Plan of care discussed with bedside RN. 03/19 Patient seen and examined Chart reviewed DW RN 03/18 Patient seen and examined bedside. Patient reports feeling about the same as yesterday. Chart reviewed. Discussed case with RN and social and political studies professor. 03/17 Patient seen and examined bedside. Patient reports feeling much better than yesterday. Chart reviewed. Discussed case with RN and social and political studies professor. 03/16 Patient seen and examined bedside. Patient pleasant and conversational. Discussed case with RN and social and political studies professor. Ms Medina is a 76yo female with PMHx TIA, seasonal allergies who presents to ED via private vehicle on 03/15/2021 c/o worsening SOB, sore throat, and fatigue for the past 3 days prior to admission. Over the past 48 hours prior to arrival she has been laying in bed and has not cooked for herself or eaten anything. She started developed diarrhea over the last day prior to arrival and almost had fecal accident in her bed. She told her grandson who lives with her that she was getting worse and needed to go to the hospital. She does note that over the past 4 days the food that she had cooked and tried to eat had tasted more salty and was losing its flavor. Denies fever, reports chills. 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 She helps transport her great granddaughter to school on a regular basis and on Tuesday03/06/2021 had to bring her great- granddaughter home early due to febrile illness took her great granddaughter to [facility] to be tested for COVID-19 and that test returned positive, and no one else in the family was tested. Patient thought she did not spend much time with her great-granddaughter, but did not wear a mask with her. Patient thinks this was her initial exposure. Patient is not vaccinated against COVID 19. Vital signs in ED pulse 77 beats a minute respirations 22/min O2 saturations 83% on room air blood pressure 136/62. Temp 98.3 F Chest radiograph with interstitial infiltrates likely acute on chronic. EKG appears sinus rhythm rate of 80 bpm normal axes and intervals, QTC [address] segment elevations no T wave inversions. Labs WBC 6.5 Hb 12.6, platelets 341, NA 138, K3.3, BUN 15, CR 0.8, glucose 96, calcium 8.5, bilirubin 0.5, AST 39, ALT 25, alk phos 53, CK 79, albumin 2.5, high-sensitivity troponin XI, rapid influenza negative, rapid COVID-19 positive, rapid group A strep negative ABG on room air . She was placed on 5 L/min nasal cannula of oxygen and O2 saturations are 92%. Admitted for further care. Vitals/I&O Vitals/I&O: Vital Signs Date Time Temp Pulse Resp B/P (MAP) Pulse Ox O2 Delivery O2 Flow Rate FiO2 03/24/21 11:00 97.4 71 18 132/62 (85) 93 Nasal Cannula 5.0 97.4 Physical Exam General: Alert, Oriented X3, Cooperative, mild distress Heart: Regular rate, No murmurs Lungs: Other Abdomen: Normal bowel sounds, Soft, No tenderness, No hepatosplenomegaly, No masses Extremities: No clubbing, No cyanosis, No edema, Normal pulses, No tenderness/swelling Skin: No rashes, No breakdown, No significant lesion Labs Labs: Laboratory Tests Test 03/24/21 11:15 Sodium Level 134 mmol/L (136-145) Potassium Level 3.9 mmol/L (3.5-5.1) Chloride Level 100 mmol/L (98-107) Carbon Dioxide Level 27 mmol/L (21-32) Anion Gap 7 (6-14) Blood Urea Nitrogen 23 mg/dL (7-20) Creatinine 0.7 mg/dL (0.6-1.0) Estimated GFR (Cockcroft-Gault) 81.6 Glucose Level 239 mg/dL (70-99) Calcium Level 8.3 mg/dL (8.5-10.1) Assessment and Plan Assessmemt and Plan Problems Medical Problems: (1) COVID-19 Status: Acute (2) Hypoxic Status: Acute (3) Person under investigation for COVID-19 Status: Acute COVID-19 respiratory failure SOB sore throat Hypoxic Plan: Has completed Remdesivir Continue other COVID-19 protocol: Once we titrate the O2 down to 2 L we could probably let her get home on steroid taper and Z-Tyron and vitamins For now continue the following; Rocephin Doxycycline Dexamethasone Beta agonist O2 6-minute walk if able to do so Robutussin DVT ppx Encourage PO intake PT/OT DNR Comment Review of Relevant I have reviewed the following items gold (where applicable) has been applied. Justifications for Admission Other Justification EWELINA MONTERO III DO Mar 24, 2021 13:25
[2021-03-24] MEDS ORDERED: ALBU8HFA INH (13:43)
[2021-03-24] MEDS ORDERED: METH4TAB2 PO (13:43)
[2021-03-24] MEDS ORDERED: DOXY100C3 PO (13:43)
[2021-03-24 15:00] VITALS: BP 145/65
[2021-03-24 19:00] VITALS: BP 138/78
[2021-03-24] MEDS: PSYLLIUM HUSK (SUGAR FREE) 1 PKT PACKET PO SCH (21:46)
[2021-03-24] MEDS: DOXYCYCLINE HYCLATE 100 MG TABLET PO SCH (21:46)
[2021-03-24] MEDS: ENOXAPARIN 40 MG/0.4 ML SYRINGE. SQ SCH (21:47)
[2021-03-24 23:23] VITALS: BP 169/76
[2021-03-25 03:16] VITALS: BP 162/78
[2021-03-25 07:00] VITALS: BP 118/74
[2021-03-25] MEDS: ASPIRIN CHEWABLE 81 MG TABLET. PO SCH (07:35)
--- NOTE | 2021-03-25 08:46 | PDOC ---
[employer] PROGRESS NOTE Date of Service DOS: DATE: 03/25/21 TIME: 08:45 Chief Complaint Chief Complaint SOB sore throat COVID-19 Hypoxic History of Present Illness History of Present Illness Patient seen and examined bedside still with some loose stools not watery now. On 4 L/min of oxygen saturations 91%. Awaiting delivery of oxygen prior to discharge home. 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 Reviewed her chart. She was doing well very pleasant. Says she still has some ongoing shortness of breath. Plan of care discussed with bedside RN. 03/19 Patient seen and examined Chart reviewed DW RN 03/18 Patient seen and examined bedside. Patient reports feeling about the same as yesterday. Chart reviewed. Discussed case with RN and social services counselor. 03/17 Patient seen and examined bedside. Patient reports feeling much better than yesterday. Chart reviewed. Discussed case with RN and social services counselor. 03/16 Patient seen and examined bedside. Patient pleasant and conversational. Discussed case with RN and social services counselor. Ms Medina is a 76yo female with PMHx TIA, seasonal allergies who presents to ED via private vehicle on 03/15/2021 c/o worsening SOB, sore throat, and fatigue for the past 3 days prior to admission. Over the past 48 hours prior to arrival she has been laying in bed and has not cooked for herself or eaten anything. She started developed diarrhea over the last day prior to arrival and almost had fecal accident in her bed. She told her grandson who lives with her that she was getting worse and needed to go to the hospital. She does note that over the past 4 days the food that she had cooked and tried to eat had tasted more salty and was losing its flavor. Denies fever, reports chills. 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 She helps transport her great granddaughter to school on a regular basis and on Tuesday03/06/2021 had to bring her great- granddaughter home early due to febrile illness took her great [facility] to be tested for COVID-19 and that test returned positive, and no one else in the family was tested. Patient thought she did not spend much time with her great-granddaughter, but did not wear a mask with her. Patient thinks this was her initial exposure. Patient is not vaccinated against COVID 19. Vital signs in ED pulse 77 beats a minute respirations 22/min O2 saturations 83% on room air blood pressure 136/62. Temp 98.3 F Chest radiograph with interstitial infiltrates likely acute on chronic. EKG appears sinus rhythm rate of 80 bpm normal axes and intervals, QTC [address] segment elevations no T wave inversions. Labs WBC 6.5 Hb 12.6, platelets 341, NA 138, K3.3, BUN 15, CR 0.8, glucose 96, calcium 8.5, bilirubin 0.5, AST 39, ALT 25, alk phos 53, CK 79, albumin 2.5, high-sensitivity troponin XI, rapid influenza negative, rapid COVID-19 positive, rapid group A strep negative ABG on room air 7.5//46 She was placed on 5 L/min nasal cannula of oxygen and O2 saturations are 92%. Admitted for further care. Vitals/I&O Vitals/I&O: Vital Signs Date Time Temp Pulse Resp B/P (MAP) Pulse Ox O2 Delivery O2 Flow Rate FiO2 03/25/21 07:50 Nasal Cannula 4.0 03/25/21 07:00 97.4 59 18 118/74 (89) 96 97.4 I & O 03/24/21 03/24/21 03/25/21 15:00 23:00 07:00 Intake Total 100 ml Balance 100 ml Physical Exam General: Alert, Oriented X3, Cooperative, mild distress Heart: Regular rate, No murmurs Lungs: Other Abdomen: Normal bowel sounds, Soft, No tenderness, No hepatosplenomegaly, No masses Extremities: No clubbing, No cyanosis, No edema, Normal pulses, No tenderness/swelling Skin: No rashes, No breakdown, No significant lesion Labs Labs: Laboratory Tests Test 03/24/21 11:15 Sodium Level 134 mmol/L (136-145) Potassium Level 3.9 mmol/L (3.5-5.1) Chloride Level 100 mmol/L (98-107) Carbon Dioxide Level 27 mmol/L (21-32) Anion Gap 7 (6-14) Blood Urea Nitrogen 23 mg/dL (7-20) Creatinine 0.7 mg/dL (0.6-1.0) Estimated GFR (Cockcroft-Gault) 81.6 Glucose Level 239 mg/dL (70-99) Calcium Level 8.3 mg/dL (8.5-10.1) Assessment and Plan Assessmemt and Plan Problems Medical Problems: (1) COVID-19 Status: Acute (2) Hypoxic Status: Acute (3) Person under investigation for COVID-19 Status: Acute Comment Review of Relevant I have reviewed the following items gold (where applicable) has been applied. Medications: Current Medications Medications (Trade) Dose Ordered Sig/Demar Route PRN Reason Start Time Stop Time Status Last Admin Dose Admin Doxycycline Hyclate (Vibra-Tab) 100 mg BID PO 03/24/21 21:00 03/24/21 21:46 Justifications for Admission Other Justification LUIS ANTONIO BROOKS MD Mar 25, 2021 08:46
--- NOTE | 2021-03-25 08:50 | PDOC3 ---
Discharge Summary Visit Information Date of Admission: Mar 15, 2021 Date of Discharge: Mar 25, 2021 Admitting Diagnosis: COVID 19 Final Diagnosis Problems Medical Problems: (1) COVID-19 Status: Acute (2) Hypoxic Status: Acute (3) Person under investigation for COVID-19 Status: Acute Brief Hospital Course Allergies Allergies Coded Allergies Type Severity Reaction Last Updated Verified Tetanus Vaccines and Toxoid Adverse Reaction Intermediate CAUSES COLD SYMPTOMS 03/15/21 Yes Vital Signs Vital Signs Date Time Temp Pulse Resp B/P (MAP) Pulse Ox O2 Delivery O2 Flow Rate FiO2 03/25/21 07:50 Nasal Cannula 4.0 03/25/21 07:00 97.4 59 18 118/74 (89) 96 97.4 Lab Results Laboratory Tests Test 03/24/21 11:15 Sodium Level 134 mmol/L (136-145) Potassium Level 3.9 mmol/L (3.5-5.1) Chloride Level 100 mmol/L (98-107) Carbon Dioxide Level 27 mmol/L (21-32) Anion Gap 7 (6-14) Blood Urea Nitrogen 23 mg/dL (7-20) Creatinine 0.7 mg/dL (0.6-1.0) Estimated GFR (Cockcroft-Gault) 81.6 Glucose Level 239 mg/dL (70-99) Calcium Level 8.3 mg/dL (8.5-10.1) Laboratory Tests Test 03/24/21 11:15 Sodium Level 134 mmol/L (136-145) Potassium Level 3.9 mmol/L (3.5-5.1) Chloride Level 100 mmol/L (98-107) Carbon Dioxide Level 27 mmol/L (21-32) Anion Gap 7 (6-14) Blood Urea Nitrogen 23 mg/dL (7-20) Creatinine 0.7 mg/dL (0.6-1.0) Estimated GFR (Cockcroft-Gault) 81.6 Glucose Level 239 mg/dL (70-99) Calcium Level 8.3 mg/dL (8.5-10.1) Brief Hospital Course Ms Medina is a 76yo female with PMHx TIA, seasonal allergies who presents to ED via private vehicle on 03/15/2021 c/o worsening SOB, sore throat, and fatigue for the past 3 days prior to admission. Over the past 48 hours prior to arrival she had been laying in bed and has not cooked for herself or eaten anything. She started developed diarrhea over the last day prior to arrival and almost had fecal accident in her bed. She told her grandson who lives with her that she was getting worse and needed to go to the hospital. She does note that over the past 4 days the food that she had cooked and tried to eat had tasted more salty and was losing its flavor. Denies fever, reports chills. 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 She helps transport her great granddaughter to school on a regular basis and on Tuesday03/06/2021 had to bring her great- granddaughter home early due to febrile illness took her great granddaughter to [facility] to be tested for COVID-19 and that test returned positive, and no one else in the family was tested. Patient thought she did not spend much time with her great-granddaughter, but did not wear a mask with her. Patient thinks this was her initial exposure. Patient is not vaccinated against COVID 19. Vital signs in ED pulse 77 beats a minute respirations 22/min O2 saturations 83% on room air blood pressure 136/62. Temp 98.3 F Chest radiograph with interstitial infiltrates likely acute on chronic. EKG appears sinus rhythm rate of 80 bpm normal axes and intervals, QTC [address] segment elevations no T wave inversions. Labs WBC 6.5 Hb 12.6, platelets 341, NA 138, K3.3, BUN 15, CR 0.8, glucose 96, calcium 8.5, bilirubin 0.5, AST 39, ALT 25, alk phos 53, CK 79, albumin 2.5, high-sensitivity troponin XI, rapid influenza negative, rapid COVID-19 positive, rapid group A strep negative ABG on room air 7.5/46 She was placed on 5 L/min nasal cannula of oxygen and O2 saturations are 92%. Admitted for further care. She had a prolonged 11-day hospital course requiring 5 doses of remdesivir and 10 doses of IV Decadron and was slowly able to wean down her oxygen with a 6- minute walk on 03/24/2021 showing 4 L/min oxygen needs at rest and on exertion. There was a delay in having oxygen delivered on 03/24/2021 will be able to go home today. Wear oxygen 4 L/min at all times check pulse oximetry every few hours or when more short of breath. If O2 saturations remain above 92% immediately slowly reduce her oxygen over the next 30 days. Take aspirin daily to prevent blood clots. Complete your course of doxycycline and Medrol as directed take albuterol inhaler as needed. 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 We recommend getting an mRNA vaccine either [employer] or [employer] in the next 3 weeks in order to protect yourself further from COVID-19 Problem list: A/P: Acute respiratory failure with hypoxia -due to COVID-19 with pneumonia. Will wean O2 as tolerated. Decadron daily for 10 days. Remdesivir. Supportive care wean O2 as tolerated COVID 19 - not vaccinated, Decadron, remdesivir, supportive care, O2 therapy. Severe protein calorie malnutrition - COVID related Mild transaminitis - likely due to covid 19. Will monitor, prn loperamide Seasonal allergies - zyrtec, prn albuterol inhaler H/o TIA - prior carotid dopplers with no significant disease. Abnormal CXR - possibly with underlying pulmonary disease, likely this is COVID 19 pneumonia. Monitor outpatient patient names Promise Stephanie and Jacinto Simoney as her surrogate decision makers Greater than 30 minutes spent on d/c home with self care. Discharge Information Condition at Discharge: Improved Follow Up: Weeks (1) Disposition/Orders: D/C to Home Scheduled Doxycycline Hyclate (Doxycycline Hyclate) 100 Mg Capsule, 1 CAP PO BID for ., #14 Prescribed by: EWELINA MONTERO on 03/24/21 1343 Methylprednisolone (Medrol) 4 Mg Tab.ds.pk, 1 PKG PO UD for ., #1 Prescribed by: EWELINA MONTERO on 03/24/21 1343 Scheduled PRN Albuterol Sulfate (Ventolin Hfa) 8 Gm Hfa.aer.ad, 2 PUFF INH PRN Q4HRS PRN for SHORTNESS OF BREATH for 10 Days, #1 Prescribed by: EWELINA MONTERO on 03/24/21 1343 Naproxen (Naproxen) 500 Mg Tablet, 1 TAB PO BID PRN for PAIN, #30 Ref 1 Prescribed by: MEGHANN JOSE D.O. on 05/31/161815 Justicifation of Admission Dx: Justifications for Admission: Justification of Admission Dx: Yes Comminuty Aquired Pneumonia: Hypoxemia LUIS ANTONIO BROOKS MD Mar 25, 2021 08:50
[2021-03-25] MEDS: THIAMINE 100 MG TABLET. PO SCH (09:09)
[2021-03-25] MEDS: CETIRIZINE HCL 10 MG TABLET. PO SCH (09:09)
[2021-03-25] MEDS: LACTOBACILLUS RHAMNOSUS GG 1 CAPSULE. PO SCH (09:09)
[2021-03-25] MEDS: DOXYCYCLINE HYCLATE 100 MG TABLET PO SCH (09:09)
[2021-03-25] MEDS: ZINC SULFATE 220 MG CAPSULE. PO SCH (09:09)
[2021-03-25] MEDS: ASCORBIC ACID 500 MG TABLET PO SCH (09:09)
--- NOTE | 2021-03-25 10:22 | NUR ---
SW following. Discussed with RNFloresita delivering oxygen tank to pt this morning. Everything else arranged. No further SW needs. Discharge home today.
--- NOTE | 2021-03-25 10:32 | NUR ---
Pt left unit at approx 1020 by wheelchair via private vehicle. Pt's PICC removed last night by RN, RICKY. Discharge paperwork discussed with pt, including medications, follow-up, oxygen, etc. COVID instructions also provided. Pt verbalizes understanding. O2 tank sent with pt, instructed to call number on tank. No additional concerns noted.
== END 2021-03-25 10:36 | disposition home or self-care (01) | DRG 177 ==
LOC: ER 10:16 → 5 NORTH 11:51
PROVIDERS: ADMIT Internal Medicine; ATTEND Internal Medicine
PROC: XW033E5 Introduction of Remdesivir Anti-infective into Peripheral Vein, Percutaneous Approach, New Technology Group 5 (ICD-10-PCS; 2021-03-17)
PROC: 5A0935A Assistance with Respiratory Ventilation, Less than 24 Consecutive Hours, High Flow/Velocity Cannula (ICD-10-PCS; 2021-03-19)
PROC: 02H633Z Insertion of Infusion Device into Right Atrium, Percutaneous Approach (ICD-10-PCS; 2021-03-19)
PROC: B548ZZA Ultrasonography of Superior Vena Cava, Guidance (ICD-10-PCS; 2021-03-19)
PROC: 5A0935A Assistance with Respiratory Ventilation, Less than 24 Consecutive Hours, High Flow/Velocity Cannula (ICD-10-PCS; principal; 2021-03-21)
DX: U07.1 COVID-19 (principal); J12.82 Pneumonia due to coronavirus disease 2019; J96.01 Acute respiratory failure with hypoxia; E43 Unspecified severe protein-calorie malnutrition; J30.2 Other seasonal allergic rhinitis; Z66 Do not resuscitate; Z79.82 Long term (current) use of aspirin; Z82.49 Family history of ischemic heart disease and other diseases of the circulatory system; Z83.3 Family history of diabetes mellitus; Z86.73 Personal history of transient ischemic attack (TIA), and cerebral infarction without residual deficits; Z87.891 Personal history of nicotine dependence; Z68.28 Body mass index [BMI] 28.0-28.9, adult
CPT/HCPCS: 36415; 36569; 36573; 36600; 71045; 80048; 80053; 82550; 82805; 83735; 84484; 85007; 85025; 86140; 87070; 87426; 87804; 87880; 93005; 94618; 96361; 96374; 96375; C1751; C1892; J0360; J0696; J0780; J1100; J1200; J1650; J3490; J7030; J7050; J7060; 97110-GO; 97110-GP; 97116-GP; 97530-GO; 97530-GP; 97535-GO; 99285-25; G0378